=== PATIENT | female | born 1950 | race Caucasian/White ===

== ENCOUNTER → 2019-04-16 10:43 | Outpatient (BNVA) | payer MEDICARE, OTHER, SELFPAY | PROVIDERS: Family Provider Nurse Practitioner; PCP Nurse Practitioner; Visit Provider Nurse Practitioner | DX: Z79.01 Long term (current) use of anticoagulants (principal); I10 Essential (primary) hypertension; M51.34 Other intervertebral disc degeneration, thoracic region; M54.5 Low back pain | CPT/HCPCS: 85610 ==

== ENCOUNTER → 2019-04-22 11:24 | Outpatient (BNVA) | payer MEDICARE, OTHER, SELFPAY | PROVIDERS: Family Provider Nurse Practitioner; PCP Nurse Practitioner; Visit Provider Nurse Practitioner | DX: R10.9 Unspecified abdominal pain (principal); Z79.01 Long term (current) use of anticoagulants; I10 Essential (primary) hypertension; M51.34 Other intervertebral disc degeneration, thoracic region; M54.5 Low back pain | CPT/HCPCS: 72072; 72100; 73502; 73522; 74018 ==

== ENCOUNTER → 2019-05-26 08:59 | Outpatient (BNVA) | payer MEDICARE, OTHER, SELFPAY | PROVIDERS: Family Provider Nurse Practitioner; PCP Nurse Practitioner; Visit Provider Nurse Practitioner | DX: I48.91 Unspecified atrial fibrillation (principal); Z79.01 Long term (current) use of anticoagulants | CPT/HCPCS: 85610 ==

== ENCOUNTER 2019-06-05 07:58 | Outpatient (CLI) | payer MEDICARE, OTHER, SELFPAY ==
--- NOTE | 2019-06-05 08:06 | CT_ITS ---
WS: [id number] CT ABDOMEN AND PELVIS NONCONTRAST HISTORY: generalized abd pain TECHNIQUE: Imaging performed through the abdomen and pelvis. Coronal and sagittal reformats are submi tted. All CT scans at [facility] use at least one of these dose optimization techniques: automated exposure control; mA and/or kV adjustment per patient size (includes targeted exams where d ose is matched to clinical indication); or iterative reconstruction. DLP: 1164.94 mGycm COMPARISON: 05/19/2016 Lower thorax: Lung bases are clear. Small hiatal hernia. Small retrocrural lymph node at the level of the diaphragmatic hiatus is stable. Liver: Normal, no mass or intrahepatic dilatation. Gallbladder: Unremarkable. Pancreas: Normal. Spleen: Normal. Adrenal glands: Normal. Right kidney: Normal size with no stones, masses or atrophy. Left kidney: Normal size with no stones, mass or atrophy. Mild atherosclerosis aorta with no aneurysm. Normal size IVC. No free fluid, intraperitoneal air or significant lymphadenopathy. GI tract: Prior appendectomy. No GI tract obstruction or mucosal thickening. No significant diverticu lar disease. Abdominal wall: Intact. Pelvis: Prior hysterectomy. No free fluid or adenopathy in the pelvis. Urinary bladder is negative. Osseous structures: Mild degenerative disc disease at L5-S1. CT/CT abdomen pelvis wo con [id number] IMPRESSION: 1. Small hiatal hernia. 2. No renal stone or obstruction. 3. Prior appendectomy and hysterectomy. 4. No acute abdominal or pelvic abnormality identified.
[2019-06-05] MEDS: iohexol 300 mg/mL 50 mL Btl PO (08:58)
== END 2019-06-05 07:59 | disposition home or self-care (01) ==
LOC: RADWPI 08:04
PROVIDERS: Family Provider Nurse Practitioner; PCP Nurse Practitioner; Visit Provider Nurse Practitioner
DX: K44.9 Diaphragmatic hernia without obstruction or gangrene (principal); R10.84 Generalized abdominal pain; Z90.710 Acquired absence of both cervix and uterus
CPT/HCPCS: 74176

== ENCOUNTER → 2019-06-18 11:36 | Outpatient (BNVA) | payer MEDICARE, OTHER, SELFPAY | PROVIDERS: Family Provider Nurse Practitioner; PCP Nurse Practitioner; Visit Provider Nurse Practitioner | DX: I48.91 Unspecified atrial fibrillation (principal); Z79.01 Long term (current) use of anticoagulants | CPT/HCPCS: 85610 ==

== ENCOUNTER 2019-06-19 11:21 | Outpatient (CLI) | payer MEDICARE, OTHER, SELFPAY ==
--- NOTE | 2019-06-19 11:28 | XR_ITS ---
WS: [id number] Lumbar spine, 3 views, 06/19/2019 Clinical Data: back pain Comparison: Lumbar spine, 04/22/2019 Findings: No compression fractures or subluxation is seen. Sprained narrowing of L5-S1 is seen.. The transverse processes are normal. Mild osteoarthritic changes of the SI joints is again noted. Osteoporosis is present. The facet joint arthritis L5-S1 remains unchanged. XR/XR lumbar spine 2-3V* [id number] Impression: 1. Negative for compression fracture. 2. No change in osteoarthritis and osteoporosis.
--- NOTE | 2019-06-19 11:28 | XR_ITS ---
WS: [id number] Thoracic spine, 3 views, 06/19/2019 Clinical Data: back pain Comparison: Thoracic spine, 04/22/2019. Findings: No new compression fractures are seen. The disc heights are minimally narrowed at multiple levels. An terior osteoarthritic spurring is present. A slight loss of the superior aspect of the T11 vertebral body is noted. Osteoporosis is present.. XR/XR thoracic spine 3V* [id number] Impression: 1. Osteoarthritis and osteoporosis. 2. Minimal loss of T11 vertebral body height unchanged.
== END 2019-06-19 11:22 | disposition home or self-care (01) ==
PROVIDERS: Family Provider Nurse Practitioner; PCP Nurse Practitioner; Visit Provider Nurse Practitioner
DX: M47.894 Other spondylosis, thoracic region (principal); M81.0 Age-related osteoporosis without current pathological fracture; M54.5 Low back pain
CPT/HCPCS: 72072; 72100

== ENCOUNTER → 2019-07-27 13:15 | Outpatient (BNVA) | payer MEDICARE, OTHER, SELFPAY | PROVIDERS: Family Provider Nurse Practitioner; PCP Nurse Practitioner; Visit Provider Nurse Practitioner | DX: Z79.01 Long term (current) use of anticoagulants (principal); I48.91 Unspecified atrial fibrillation | CPT/HCPCS: 85610 ==

== ENCOUNTER → 2019-08-04 10:16 | Outpatient (BNVA) | payer MEDICARE, OTHER, SELFPAY | PROVIDERS: Family Provider Nurse Practitioner; PCP Nurse Practitioner; Visit Provider Specialist | DX: G40.109 Localization-related (focal) (partial) symptomatic epilepsy and epileptic syndromes with simple partial seizures, not intractable, without status epilepticus (principal) | CPT/HCPCS: 99213 ==

== ENCOUNTER → 2019-08-05 16:08 | Outpatient (BNVA) | payer MEDICARE, OTHER, SELFPAY | PROVIDERS: Family Provider Nurse Practitioner; PCP Nurse Practitioner; Visit Provider Nurse Practitioner | DX: N39.0 Urinary tract infection, site not specified (principal); R30.0 Dysuria | CPT/HCPCS: 80053; 81003; 87077; 87086; 87186 ==

== ENCOUNTER → 2019-08-17 11:44 | Outpatient (BNVA) | payer MEDICARE, OTHER, SELFPAY | PROVIDERS: Family Provider Nurse Practitioner; PCP Nurse Practitioner; Visit Provider Nurse Practitioner | DX: Z79.01 Long term (current) use of anticoagulants (principal); I10 Essential (primary) hypertension; J98.8 Other specified respiratory disorders; R30.0 Dysuria | CPT/HCPCS: 81000; 85610 ==

== ENCOUNTER → 2019-09-09 08:52 | Outpatient (BNVA) | payer MEDICARE, OTHER, SELFPAY | PROVIDERS: Family Provider Nurse Practitioner; PCP Nurse Practitioner; Visit Provider Nurse Practitioner | DX: I48.91 Unspecified atrial fibrillation (principal); Z79.01 Long term (current) use of anticoagulants | CPT/HCPCS: 85610 ==

== ENCOUNTER → 2019-10-08 09:34 | Outpatient (BNVA) | payer MEDICARE, OTHER, SELFPAY | PROVIDERS: Family Provider Nurse Practitioner; PCP Nurse Practitioner; Visit Provider Nurse Practitioner Family | DX: R07.9 Chest pain, unspecified (principal); Z11.59 Encounter for screening for other viral diseases; R53.83 Other fatigue; M25.50 Pain in unspecified joint; W57.XXXA Bitten or stung by nonvenomous insect and other nonvenomous arthropods, initial encounter | CPT/HCPCS: 80053; 82550; 84484; 85025; 86000; 86617; 86666; 86757; 87635 ==

== ENCOUNTER → 2019-10-12 08:33 | Outpatient (BNVA) | payer MEDICARE, OTHER, SELFPAY | PROVIDERS: Family Provider Nurse Practitioner; PCP Nurse Practitioner; Visit Provider Nurse Practitioner | DX: I48.91 Unspecified atrial fibrillation (principal); Z79.01 Long term (current) use of anticoagulants | CPT/HCPCS: 85610 ==

== ENCOUNTER 2019-10-19 11:43 | Outpatient (CLI) | payer MEDICARE, OTHER, SELFPAY ==
--- NOTE | 2019-10-19 13:30 | USCV_ITS ---
Blas Nasrin Age: 69 Gender: F : 1950 Exam Date: 10/19/2019 12:14 Ordering Phys: Taj José Technologist: Deven De León Exam Location: [facility] [place] Indication: PAIN IN LT LEG HISTORY: PAIN IN LT LEG. HISTORY OF PE PROCEDURES: Venous duplex imaging was performed in only the left lower extremity. The following venous structures were evaluated: common femoral vein, profunda vein, proximal portion of the greater saphenous vein, superficial femoral vein, and the popliteal vein. In addition, the posterior tibial and peroneal trunk were evaluated. Serial compression, augmentation maneuvers, and spectral Doppler flow evaluation were performed. FINDINGS: Normal 2-D Doppler and augmentation and compressibility throughout the lower extremity venous structures. Additional imaging through the proximal calf veins also reveals no thrombus. Limited evaluation of the greater saphenous vein is patent with no thrombus. CONCLUSIONS No DVT left lower extremity. Dr. Essence Ram DO (Electronically Signed) Final Date: 19 October 2019 16:22 S
== END 2019-10-19 11:44 | disposition home or self-care (01) ==
LOC: RAD 11:48
PROVIDERS: PCP Nurse Practitioner; Visit Provider Nurse Practitioner
DX: M79.662 Pain in left lower leg (principal); Z86.718 Personal history of other venous thrombosis and embolism
CPT/HCPCS: 80053; 85610; 93971

== ENCOUNTER 2019-10-25 09:29 | Emergency (ER) | payer MEDICARE, OTHER, SELFPAY ==
[2019-10-25 09:34] VITALS: BP 156/74; PULSE 72; RESP 18; TEMP 36.7; O2SAT 97; BMI 31.4
--- NOTE | 2019-10-25 09:44 | ED_ITS ---
HPI - Skin/Abscess/Foreign Bdy General: Chief complaint: Skin/Abscess/Foreign Body Stated complaint: rash/poss allergic reaction to med Time Seen by Provider: 10/25/19 09:39 History of Present Illness: HPI narrative: patient has multiple small circular red areas to both legs. She was recently put on Keflex for possible skin infection and believed that this was an allergic reaction. 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 Factor V History of DVT of lower extremity Left leg angiogram attempted on leg 2009 History of hepatitis A Localization-related (focal) (partial) symptomatic epilepsy and epileptic syndromes with simple partial seizures, not intractable, without status epilepticus Mixed hyperlipidemia Spine pain, lumbar Surgical History History of appendectomy 1974 History of hysterectomy 1976 with BSO History of shoulder surgery 2008 left History of tonsillectomy 2005 History of tubal ligation 1974 Family History Father Cancer Hypertension Heart disease Mother Diabetes Stroke Hypertension Heart disease Daughter Diabetes Grandmother Hypertension Heart disease Social History Smoking and tobacco status: never smoked Second hand smoke exposure: No Smoking risk assessment/counseling performed?: No Alcohol intake: never Desire information about alcohol rehabilitation?: No Counseling given: No Desire information about substance/drug rehabilitation?: No Counseling given: No Adopted: No Caregiver/support person: No Lives independently: Yes Household members: spouse Housing: House Marital status: Number of children: 4 service: No Current occupational status: retired History of recent travel: No Current gender identity: Female Physical Exam Const: COMMON NORMALS: no acute distress, patient oriented x3, no limitations and alert HENMT: COMMON NORMALS: normocephalic, atraumatic, external ears normal and Normal external nose present HEAD & SCALP: normocephalic and atraumatic FACE & SINUS: normal facial exam NOSE: Normal external nose present E XTERNAL EAR: Yes external ears normal MOUTH: Normal oral and palatal mucosa present Neck/C-Spine: COMMON NORMALS: full ROM, no lymphadenopathy, supple, no meningeal signs and no JVD GENERAL: Yes normal visual inspection Resp: COMMON NORMALS: normal respiratory effort, No retractions, No use of accessory muscles and clear to auscultation bilaterally AUSCULTATION: clear to auscultation bilaterally Cardio: COMMON NORMALS: no JVD, regular rate and regular rhythm RATE: r egular rate RHYTHM: regular rhythm GI: COMMON NORMALS: Normal to inspection, nondistended, normoactive bowel sounds present, Soft to palpation, non-tender, No hepatosplenomegaly present and no masses INSPECTION: Yes normal to inspection AUSCULTATION: Yes normoactive bowel sounds PALPATION: Yes Soft to palpation and Yes No hepatosplenomegaly present PERCUSSION: normal to percussion : COMMON NORMALS: Yes no CVA tenderness and Yes normal external appearance BLADDER/KIDNEY EXAM: Yes no CVA tenderness Back/Pelvis: COMMON NORMALS: no CVA tenderness, thoracic and lumbar spine normal to inspection, no thoracic nor lumbar tenderness, thoraco-lumbar ROM normal and straight leg raise negative bilaterally Extremity: COMMON NORMALS: normal to inspection, full ROM, capillary refill normal, no joint enlargement, no clubbing, cyanosis or edema, no calf tenderness and no pedal edema Neuro: COMMON NORMALS: patient oriented x3, moves all extremities, no focal motor deficits and no sensory deficits noted SENSORIUM/ORIENTATION: Yes alert MENINGEAL SIGNS: Yes no meningeal signs Psych: COMMON NORMALS: mental status grossly normal, Normal thought process present, cooperative, normal affect and speech normal SPEECH: Yes normal speech THOUGHT PROCESS: Normal thought process present Skin: COMMON NORMALS: no wounds, turgor normal, no jaundice and no mottling GENERAL SKIN EXAM: turgor normal RASHES: rashes noted Course Vital Signs: Vital signs: Vital Signs Temperature 98.1 F 10/25/19 09:34 Pulse Rate 72 10/25/19 09:34 Respiratory Rate 18 10/25/19 09:34 Blood Pressure 156/74 10/25/19 09:34 Pulse Oximetry 97 10/25/19 09:34 Discharge Plan Discharge Patient Disposition: Home Clinical Impression: Rash Condition: Stable Prescriptions: New prednisone 5 mg tablets,dose pack See Rx Instructions .ROUTE .COMPLEX Qty: 21 RF: 0 No Action nitroglycerin [Nitrostat] 0.4 mg tablet, sublingual 0.4 mg SUBLINGUAL ONCE PRNRF: 0 nitrofurantoin monohyd/m-cryst [Macrobid] 100 mg capsule 100 mg PO Q12H 7 Days Qty: 14 RF: 0 furosemide 40 mg tablet 40 mg PO QAM PRN (Reason: edema) Qty: 90 RF: 1 levalbuterol tartrate [Xopenex HFA] 45 mcg/actuation HFA aerosol inhaler 1 puff INHALATION Q6H Qty: 15 RF: 2 metoprolol tartrate 75 mg tablet 75 mg PO BID Qty: 180 RF: 3 levetiracetam 1,000 mg tablet 2,000 mg PO BID Qty: 120 RF: 5 alprazolam 0.25 mg tablet 0.25 mg PO DAILY PRN (Reason: epilepsy) Qty: 30 RF: 5 warfarin 6 mg tablet 6 mg PO QDAY Qty: 30 RF: 0 warfarin 1 mg tablet 0.5 mg PO .COMPLEX Qty: 15 RF: 0 cephalexin [Keflex] 500 mg capsule 500 mg PO TID Qty: 30 RF: 0 ondansetron HCl [Zofran] 4 mg tablet 4 mg PO Q8H PRN (Reason: nausea and vomiting) Qty: 7 RF: 0 Discharge Orders: Discharge Order (Routine); Ordered 10/25/19 Ordered By: Luis M Maloney Referrals: Taj José, PRODUCTION MACHINIST-C [Primary Care Provider] - Coding Level of Care Code ED [employer]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
[2019-10-25 10:04] VITALS: BP 120/57; PULSE 65; RESP 18; O2SAT 94
== END 2019-10-25 10:03 | disposition home or self-care (01) ==
LOC: ER 09:56
PROVIDERS: Emergency Provider Family Medicine; PCP Nurse Practitioner
DX: R21 Rash and other nonspecific skin eruption (principal); Z79.01 Long term (current) use of anticoagulants; I48.91 Unspecified atrial fibrillation; I10 Essential (primary) hypertension; E78.2 Mixed hyperlipidemia
CPT/HCPCS: 12345; 99281

== ENCOUNTER → 2019-10-30 08:56 | Outpatient (BNVA) | payer MEDICARE, OTHER, SELFPAY | PROVIDERS: PCP Nurse Practitioner; Visit Provider Nurse Practitioner | DX: M54.5 Low back pain (principal); R21 Rash and other nonspecific skin eruption; Z79.01 Long term (current) use of anticoagulants; R26.9 Unspecified abnormalities of gait and mobility | CPT/HCPCS: 85025; 85610 ==

== ENCOUNTER 2019-11-03 13:00 | Outpatient (CLI) | payer MEDICARE, OTHER, SELFPAY ==
--- NOTE | 2019-11-03 18:15 | MR_ITS ---
WS: [id number] MRI LUMBAR SPINE NONCONTRAST HISTORY: M54.5 Low back pain COMPARISON: 06/20/2011 TECHNIQUE: Sagittal and axial multisequence imaging is submitted. Normal lumbar alignment with no compression fractures or marrow edema. Minimal disc space narrowing and desiccation at L4-5 and L5-S1. Conus terminates normally at L1-2 disc level. 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 T12-L1: Mild disc bulging with no contact on the cord. L1-L2: Mild annular disc bulging without stenosis. Small nerve root sleeve diverticulum on the RIGHT. L2-L3: Mild annular disc bulging. There is a more focal shallow RIGHT foraminal disc protrusion not c ausing significant stenosis or encroachment. L3-L4: Mild facet joint arthritis. No significant stenosis. L4-L5: Mild annular disc bulging with facet and ligamentum flavum arthropathy. There is very minimal narrowing of the subarticular recesses but no stenosis. L5-S1: Broad-based central disc protrusion without contact on the nerve roots. Mild facet joint arthr itis. Less encroachment upon the S1 nerve roots as compared to the prior study. Visualized retroperitoneum is normal. MR/MR lumbar spine wo con* [id number] IMPRESSION: 1. No high-grade stenosis. 2. Central disc protrusion at L5-S1. Disc has decreased in size since 2011 wit h less encroachment upon the S1 nerve roots. 3. New shallow RIGHT foraminal disc protrusion at L2-3 without nerve root encr oachment. 4. Mild narrowing of the subarticular recesses at L4-5.
== END 2019-11-03 13:01 | disposition home or self-care (01) ==
LOC: RADSHAW 13:02
PROVIDERS: PCP Nurse Practitioner; Visit Provider Nurse Practitioner
DX: M51.27 Other intervertebral disc displacement, lumbosacral region (principal); M51.26 Other intervertebral disc displacement, lumbar region
CPT/HCPCS: 72148

== ENCOUNTER → 2019-11-19 09:24 | Outpatient (BNVA) | payer MEDICARE, OTHER, SELFPAY | PROVIDERS: PCP Nurse Practitioner; Referring Provider Nurse Practitioner; Visit Provider Anesthesiology Pain Medicine | DX: M47.816 Spondylosis without myelopathy or radiculopathy, lumbar region (principal); M51.16 Intervertebral disc disorders with radiculopathy, lumbar region; M62.830 Muscle spasm of back | CPT/HCPCS: 99205 ==

== ENCOUNTER → 2019-11-26 08:43 | Outpatient (BNVA) | payer MEDICARE, OTHER, SELFPAY | PROVIDERS: PCP Nurse Practitioner; Visit Provider Nurse Practitioner | DX: Z79.01 Long term (current) use of anticoagulants (principal); I48.11 Longstanding persistent atrial fibrillation | CPT/HCPCS: 85610 ==

== ENCOUNTER → 2019-12-02 13:47 | Outpatient (BNVA) | payer MEDICARE, OTHER, SELFPAY | PROVIDERS: PCP Nurse Practitioner; Visit Provider Anesthesiology Pain Medicine | DX: M47.816 Spondylosis without myelopathy or radiculopathy, lumbar region (principal); M54.9 Dorsalgia, unspecified | CPT/HCPCS: 64493; 64494; 64495; J3490 ==

== ENCOUNTER → 2019-12-15 09:45 | Outpatient (BNVA) | payer MEDICARE, OTHER, SELFPAY | PROVIDERS: PCP Nurse Practitioner; Visit Provider Anesthesiology Pain Medicine | DX: M47.816 Spondylosis without myelopathy or radiculopathy, lumbar region (principal); M51.16 Intervertebral disc disorders with radiculopathy, lumbar region; M62.830 Muscle spasm of back | CPT/HCPCS: 99213 ==

== ENCOUNTER → 2019-12-31 08:35 | Outpatient (BNVA) | payer MEDICARE, OTHER, SELFPAY | PROVIDERS: PCP Nurse Practitioner; Visit Provider Nurse Practitioner | DX: I48.11 Longstanding persistent atrial fibrillation (principal); Z79.01 Long term (current) use of anticoagulants | CPT/HCPCS: 85610 ==

== ENCOUNTER 2020-01-20 06:00 | Outpatient (RCR) | payer MEDICARE, OTHER, SELFPAY | END 2020-01-30 23:59 | disposition home or self-care (01) | LOC: APT 06:00 | PROVIDERS: PCP Nurse Practitioner; Referring Provider Anesthesiology Pain Medicine; Visit Provider Anesthesiology Pain Medicine | DX: G89.29 Other chronic pain (principal); M47.816 Spondylosis without myelopathy or radiculopathy, lumbar region | CPT/HCPCS: 97110; 97163 ==

== ENCOUNTER 2020-01-31 06:00 | Outpatient (RCR) | payer MEDICARE, OTHER, SELFPAY | END 2020-02-29 23:59 | disposition home or self-care (01) | LOC: APT 06:00 | PROVIDERS: PCP Nurse Practitioner; Referring Provider Anesthesiology Pain Medicine; Visit Provider Anesthesiology Pain Medicine | DX: M54.5 Low back pain (principal); G89.29 Other chronic pain; M47.816 Spondylosis without myelopathy or radiculopathy, lumbar region | CPT/HCPCS: 97110; 97530 ==

== ENCOUNTER → 2020-02-01 13:04 | Outpatient (BNVA) | payer MEDICARE, OTHER, SELFPAY | PROVIDERS: PCP Nurse Practitioner; Visit Provider Nurse Practitioner | DX: Z51.81 Encounter for therapeutic drug level monitoring (principal); Z79.01 Long term (current) use of anticoagulants | CPT/HCPCS: 85610 ==

== ENCOUNTER → 2020-03-03 09:05 | Outpatient (BNVA) | payer MEDICARE, OTHER, SELFPAY | PROVIDERS: PCP Nurse Practitioner; Visit Provider Nurse Practitioner | DX: Z79.01 Long term (current) use of anticoagulants (principal); I48.11 Longstanding persistent atrial fibrillation | CPT/HCPCS: 85610 ==

== ENCOUNTER → 2020-04-04 09:13 | Outpatient (BNVA) | payer MEDICARE, OTHER, SELFPAY | PROVIDERS: PCP Nurse Practitioner; Visit Provider Nurse Practitioner | DX: E78.5 Hyperlipidemia, unspecified (principal); I10 Essential (primary) hypertension; I48.11 Longstanding persistent atrial fibrillation; Z79.01 Long term (current) use of anticoagulants | CPT/HCPCS: 80053; 85610 ==

== ENCOUNTER → 2020-05-04 08:52 | Outpatient (BNVA) | payer MEDICARE, OTHER, SELFPAY | PROVIDERS: PCP Nurse Practitioner; Visit Provider Nurse Practitioner | DX: I48.11 Longstanding persistent atrial fibrillation (principal); Z79.01 Long term (current) use of anticoagulants | CPT/HCPCS: 85610 ==

== ENCOUNTER → 2020-06-01 12:52 | Outpatient (BNVA) | payer MEDICARE, OTHER, SELFPAY | PROVIDERS: PCP Nurse Practitioner; Visit Provider Specialist | DX: G40.109 Localization-related (focal) (partial) symptomatic epilepsy and epileptic syndromes with simple partial seizures, not intractable, without status epilepticus (principal) | CPT/HCPCS: 99213; 99214 ==

== ENCOUNTER → 2020-06-07 08:26 | Outpatient (BNVA) | payer MEDICARE, OTHER, SELFPAY | PROVIDERS: PCP Nurse Practitioner; Visit Provider Nurse Practitioner | DX: I48.11 Longstanding persistent atrial fibrillation (principal); Z79.01 Long term (current) use of anticoagulants | CPT/HCPCS: 85610 ==

== ENCOUNTER → 2020-07-08 08:16 | Outpatient (BNVA) | payer MEDICARE, OTHER, SELFPAY | PROVIDERS: PCP Nurse Practitioner; Visit Provider Nurse Practitioner | DX: I48.11 Longstanding persistent atrial fibrillation (principal); Z79.01 Long term (current) use of anticoagulants | CPT/HCPCS: 85610 ==

== ENCOUNTER → 2020-08-10 09:31 | Outpatient (BNVA) | payer MEDICARE, OTHER, SELFPAY | PROVIDERS: PCP Nurse Practitioner; Visit Provider Nurse Practitioner | DX: Z79.01 Long term (current) use of anticoagulants (principal) | CPT/HCPCS: 85610 ==

== ENCOUNTER → 2020-09-06 14:15 | Outpatient (BNVA) | payer MEDICARE, OTHER, SELFPAY | PROVIDERS: PCP Nurse Practitioner; Visit Provider Nurse Practitioner | DX: I48.11 Longstanding persistent atrial fibrillation (principal); Z79.01 Long term (current) use of anticoagulants | CPT/HCPCS: 85610 ==

== ENCOUNTER → 2020-10-17 08:58 | Outpatient (BNVA) | payer MEDICARE, OTHER, SELFPAY | PROVIDERS: PCP Nurse Practitioner; Visit Provider Nurse Practitioner | DX: I48.11 Longstanding persistent atrial fibrillation (principal) | CPT/HCPCS: 85610 ==

== ENCOUNTER → 2020-11-15 08:47 | Outpatient (BNVA) | payer MEDICARE, OTHER, SELFPAY | PROVIDERS: PCP Nurse Practitioner; Visit Provider Nurse Practitioner | DX: Z79.01 Long term (current) use of anticoagulants (principal) | CPT/HCPCS: 85610 ==

== ENCOUNTER → 2020-12-14 08:59 | Outpatient (BNVA) | payer MEDICARE, OTHER, SELFPAY | PROVIDERS: PCP Nurse Practitioner; Visit Provider Nurse Practitioner | DX: I48.11 Longstanding persistent atrial fibrillation (principal); Z79.01 Long term (current) use of anticoagulants | CPT/HCPCS: 85610 ==

== ENCOUNTER → 2020-12-26 11:02 | Outpatient (BNVA) | payer MEDICARE, OTHER, SELFPAY | PROVIDERS: PCP Nurse Practitioner; Visit Provider Nurse Practitioner Family | DX: N39.0 Urinary tract infection, site not specified (principal); M62.830 Muscle spasm of back | CPT/HCPCS: 81000 ==

== ENCOUNTER → 2021-01-03 16:46 | Outpatient (BNVA) | payer MEDICARE, OTHER, SELFPAY | PROVIDERS: PCP Nurse Practitioner; Visit Provider Nurse Practitioner | DX: R10.9 Unspecified abdominal pain (principal); E78.5 Hyperlipidemia, unspecified; I10 Essential (primary) hypertension; I48.11 Longstanding persistent atrial fibrillation; Z79.01 Long term (current) use of anticoagulants | CPT/HCPCS: 80053; 80061; 84443; 85025; 85610 ==

== ENCOUNTER 2021-01-24 07:33 | Outpatient (CLI) | payer MEDICARE, OTHER, SELFPAY ==
--- NOTE | 2021-01-24 08:00 | US_ITS ---
WS: [id number] RENAL ULTRASOUND HISTORY: R10.9 - Unspecified abdominal pain COMPARISON: None available. TECHNIQUE: 2-D and color Doppler imaging of the kidney submitted. Right kidney: 11.5 cm x 4.6 cm x 4.8 cm. Normal echogenicity with no hydronephrosis or mass. Left kidney: 11.6 cm x 5.0 cm x 4.9 cm. Normal echogenicity with no hydronephrosis or mass. Aorta: Normal. Urinary Bladder: Normal distention. Cholelithiasis. Gallbladder is slightly contracted which may be due to nonfasting state. US/US renal BI* [id number] IMPRESSION: Normal renal ultrasound. Cholelithiasis.
== END 2021-01-24 07:34 | disposition home or self-care (01) ==
PROVIDERS: PCP Nurse Practitioner; Visit Provider Nurse Practitioner
DX: R10.9 Unspecified abdominal pain (principal); K80.20 Calculus of gallbladder without cholecystitis without obstruction
CPT/HCPCS: 76770

== ENCOUNTER → 2021-01-26 08:44 | Outpatient (BNVA) | payer MEDICARE, OTHER, SELFPAY | PROVIDERS: PCP Nurse Practitioner; Visit Provider Anesthesiology Pain Medicine | DX: M47.816 Spondylosis without myelopathy or radiculopathy, lumbar region (principal); M51.16 Intervertebral disc disorders with radiculopathy, lumbar region; M62.830 Muscle spasm of back; M79.605 Pain in left leg | CPT/HCPCS: 99214 ==

== ENCOUNTER → 2021-02-09 12:30 | Outpatient (BNVA) | payer MEDICARE, OTHER, SELFPAY | PROVIDERS: PCP Nurse Practitioner; Visit Provider Anesthesiology Pain Medicine | DX: M47.816 Spondylosis without myelopathy or radiculopathy, lumbar region (principal); M54.16 Radiculopathy, lumbar region | CPT/HCPCS: 64635; 64636 ==

== ENCOUNTER → 2021-02-14 08:56 | Outpatient (BNVA) | payer MEDICARE, OTHER, SELFPAY | PROVIDERS: PCP Nurse Practitioner; Visit Provider Nurse Practitioner | DX: Z79.01 Long term (current) use of anticoagulants (principal) | CPT/HCPCS: 85610 ==

== ENCOUNTER → 2021-03-02 13:14 | Outpatient (BNVA) | payer MEDICARE, OTHER, SELFPAY | PROVIDERS: PCP Nurse Practitioner; Visit Provider Anesthesiology Pain Medicine | DX: M47.816 Spondylosis without myelopathy or radiculopathy, lumbar region (principal) | CPT/HCPCS: 64635; 64636; J1030 ==

== ENCOUNTER → 2021-03-15 08:59 | Outpatient (BNVA) | payer MEDICARE, OTHER, SELFPAY | PROVIDERS: PCP Nurse Practitioner; Visit Provider Nurse Practitioner | DX: Z79.01 Long term (current) use of anticoagulants (principal) | CPT/HCPCS: 85610 ==

== ENCOUNTER → 2021-03-16 09:47 | Outpatient (BNVA) | payer MEDICARE, OTHER, SELFPAY | PROVIDERS: PCP Nurse Practitioner; Visit Provider Anesthesiology Pain Medicine | DX: M54.50 Low back pain, unspecified (principal) | CPT/HCPCS: 99212 ==

== ENCOUNTER → 2021-04-12 08:58 | Outpatient (BNVA) | payer MEDICARE, OTHER, SELFPAY | PROVIDERS: PCP Nurse Practitioner; Visit Provider Nurse Practitioner | DX: Z79.01 Long term (current) use of anticoagulants (principal) | CPT/HCPCS: 85610 ==

== ENCOUNTER → 2021-05-11 08:59 | Outpatient (BNVA) | payer MEDICARE, OTHER, SELFPAY | PROVIDERS: PCP Nurse Practitioner; Visit Provider Nurse Practitioner | DX: Z79.01 Long term (current) use of anticoagulants (principal) | CPT/HCPCS: 85610 ==

== ENCOUNTER → 2021-06-07 12:29 | Outpatient (BNVA) | payer MEDICARE, OTHER, SELFPAY | PROVIDERS: PCP Nurse Practitioner; Visit Provider Specialist | DX: G40.109 Localization-related (focal) (partial) symptomatic epilepsy and epileptic syndromes with simple partial seizures, not intractable, without status epilepticus (principal) | CPT/HCPCS: 99213 ==

== ENCOUNTER → 2021-06-08 09:03 | Outpatient (BNVA) | payer MEDICARE, OTHER, SELFPAY | PROVIDERS: PCP Nurse Practitioner; Visit Provider Nurse Practitioner | DX: I48.91 Unspecified atrial fibrillation (principal) | CPT/HCPCS: 85610 ==

== ENCOUNTER 2021-07-06 10:37 | Outpatient (CLI) | payer MEDICARE, OTHER, SELFPAY ==
--- NOTE | 2021-07-06 11:15 | US_ITS ---
WS: [id number] THYROID ULTRASOUND HISTORY: E04.9 - Nontoxic goiter, unspecified COMPARISON: 09/30/2018 Right lobe: 1.7 cm x 2.3 cm x 5.3 cm (w x ap x l). Volume: 11.0 cm3. Mildly prominent thyroid. No increased vascularity. Very superficial benign-appearing nodule in the m id gland measures 7 x 3 x 7 mm. No change since 2019. Left lobe: 1.5 cm x 1.7 cm x 4.5 cm (w x ap x l). Volume: 5.9 cm3. Normal size and echotexture. No significant or dominant nodules are present. Isthmus: 0.3 cm. Small normal-appearing bilateral cervical chain lymph nodes. US/US thyroid [id number] IMPRESSION: Stable ultrasound thyroid since 09/30/2018. No new or increasing nodules size or suspicious calcification.
== END 2021-07-06 10:38 | disposition home or self-care (01) ==
PROVIDERS: PCP Nurse Practitioner; Visit Provider Nurse Practitioner
DX: E04.9 Nontoxic goiter, unspecified (principal)
CPT/HCPCS: 76536; 99214

== ENCOUNTER → 2021-07-11 14:09 | Outpatient (BNVA) | payer MEDICARE, OTHER, SELFPAY | PROVIDERS: PCP Nurse Practitioner; Visit Provider Nurse Practitioner | DX: I48.11 Longstanding persistent atrial fibrillation (principal); L03.90 Cellulitis, unspecified; J45.909 Unspecified asthma, uncomplicated; E04.9 Nontoxic goiter, unspecified; E78.5 Hyperlipidemia, unspecified | CPT/HCPCS: 73590; 85610 ==

== ENCOUNTER → 2021-07-19 10:09 | Outpatient (BNVA) | payer MEDICARE, OTHER, SELFPAY | PROVIDERS: PCP Nurse Practitioner; Visit Provider Nurse Practitioner | DX: R07.81 Pleurodynia (principal); M62.830 Muscle spasm of back; E78.5 Hyperlipidemia, unspecified; E04.9 Nontoxic goiter, unspecified | CPT/HCPCS: 71101; 80053; 80061; 84443 ==

== ENCOUNTER → 2021-08-15 08:52 | Outpatient (BNVA) | payer MEDICARE, OTHER, SELFPAY | PROVIDERS: PCP Nurse Practitioner; Visit Provider Nurse Practitioner | DX: Z79.01 Long term (current) use of anticoagulants (principal) | CPT/HCPCS: 85610 ==

== ENCOUNTER → 2021-09-13 08:55 | Outpatient (BNVA) | payer MEDICARE, OTHER, SELFPAY | PROVIDERS: PCP Nurse Practitioner; Visit Provider Nurse Practitioner | DX: I48.11 Longstanding persistent atrial fibrillation (principal); Z79.01 Long term (current) use of anticoagulants | CPT/HCPCS: 85610 ==

== ENCOUNTER → 2021-09-21 11:12 | Outpatient (BNVA) | payer MEDICARE, OTHER, SELFPAY | PROVIDERS: PCP Nurse Practitioner; Visit Provider Nurse Practitioner Family | DX: R30.0 Dysuria (principal); N39.0 Urinary tract infection, site not specified | CPT/HCPCS: 81000; 87077; 87086; 87184 ==

== ENCOUNTER → 2021-10-18 09:12 | Outpatient (BNVA) | payer MEDICARE, OTHER, SELFPAY | PROVIDERS: PCP Nurse Practitioner; Visit Provider Nurse Practitioner | DX: I48.11 Longstanding persistent atrial fibrillation (principal); Z79.01 Long term (current) use of anticoagulants | CPT/HCPCS: 85610 ==

== ENCOUNTER → 2021-11-17 08:07 | Outpatient (BNVA) | payer MEDICARE, OTHER, SELFPAY | PROVIDERS: PCP Nurse Practitioner; Visit Provider Nurse Practitioner | DX: Z79.01 Long term (current) use of anticoagulants (principal) | CPT/HCPCS: 85610 ==

== ENCOUNTER → 2021-12-13 08:46 | Outpatient (BNVA) | payer MEDICARE, SELFPAY | PROVIDERS: PCP Nurse Practitioner; Visit Provider Nurse Practitioner | DX: I48.91 Unspecified atrial fibrillation (principal) | CPT/HCPCS: 85610 ==

== ENCOUNTER → 2021-12-25 10:10 | Outpatient (BNVA) | payer MEDICARE, OTHER, SELFPAY | PROVIDERS: PCP Nurse Practitioner; Visit Provider Internal Medicine Cardiovascular Disease | DX: I48.11 Longstanding persistent atrial fibrillation (principal); L97.929 Non-pressure chronic ulcer of unspecified part of left lower leg with unspecified severity; I10 Essential (primary) hypertension; Z86.718 Personal history of other venous thrombosis and embolism; E78.5 Hyperlipidemia, unspecified; Z79.01 Long term (current) use of anticoagulants; F17.200 Nicotine dependence, unspecified, uncomplicated | CPT/HCPCS: 99214 ==

== ENCOUNTER → 2022-01-10 08:30 | Outpatient (BNVA) | payer MEDICARE, OTHER, SELFPAY | PROVIDERS: PCP Nurse Practitioner; Visit Provider Internal Medicine Cardiovascular Disease | DX: E78.5 Hyperlipidemia, unspecified (principal) | CPT/HCPCS: 80061 ==

== ENCOUNTER → 2022-01-17 08:35 | Outpatient (BNVA) | payer MEDICARE, OTHER, SELFPAY | PROVIDERS: PCP Nurse Practitioner; Visit Provider Nurse Practitioner | DX: I48.11 Longstanding persistent atrial fibrillation (principal); Z79.01 Long term (current) use of anticoagulants | CPT/HCPCS: 85610 ==

== ENCOUNTER → 2022-02-15 08:37 | Outpatient (BNVA) | payer MEDICARE, OTHER, SELFPAY | PROVIDERS: PCP Nurse Practitioner; Visit Provider Nurse Practitioner | DX: I48.11 Longstanding persistent atrial fibrillation (principal) | CPT/HCPCS: 85610 ==

== ENCOUNTER → 2022-03-15 09:40 | Outpatient (BNVA) | payer MEDICARE, OTHER, SELFPAY | PROVIDERS: PCP Nurse Practitioner; Visit Provider Nurse Practitioner | DX: I48.11 Longstanding persistent atrial fibrillation (principal) | CPT/HCPCS: 85610 ==

== ENCOUNTER → 2022-04-10 08:28 | Outpatient (BNVA) | payer MEDICARE, OTHER, SELFPAY | PROVIDERS: PCP Nurse Practitioner; Visit Provider Nurse Practitioner | DX: I48.11 Longstanding persistent atrial fibrillation (principal) | CPT/HCPCS: 85610 ==

== ENCOUNTER → 2022-05-18 10:05 | Outpatient (BNVA) | payer MEDICARE, OTHER, SELFPAY | PROVIDERS: PCP Nurse Practitioner; Visit Provider Nurse Practitioner | DX: I48.11 Longstanding persistent atrial fibrillation (principal) | CPT/HCPCS: 85610 ==

== ENCOUNTER → 2022-06-05 12:01 | Outpatient (BNVA) | payer MEDICARE, OTHER, SELFPAY | PROVIDERS: PCP Nurse Practitioner; Visit Provider Specialist | DX: G40.109 Localization-related (focal) (partial) symptomatic epilepsy and epileptic syndromes with simple partial seizures, not intractable, without status epilepticus (principal); R07.0 Pain in throat; F41.9 Anxiety disorder, unspecified; F32.A Depression, unspecified | CPT/HCPCS: 99214 ==

== ENCOUNTER → 2022-06-14 09:35 | Outpatient (BNVA) | payer MEDICARE, OTHER, SELFPAY | PROVIDERS: PCP Nurse Practitioner; Visit Provider Nurse Practitioner | DX: I48.11 Longstanding persistent atrial fibrillation (principal); E04.9 Nontoxic goiter, unspecified; E78.5 Hyperlipidemia, unspecified; Z79.01 Long term (current) use of anticoagulants; J45.909 Unspecified asthma, uncomplicated; I10 Essential (primary) hypertension; J98.01 Acute bronchospasm | CPT/HCPCS: 80053; 80061; 84443; 85025; 85610 ==

== ENCOUNTER → 2022-06-15 12:13 | Outpatient (BNVA) | payer MEDICARE, OTHER, SELFPAY | PROVIDERS: PCP Nurse Practitioner; Visit Provider Family Medicine | DX: E04.9 Nontoxic goiter, unspecified (principal); E78.5 Hyperlipidemia, unspecified; I10 Essential (primary) hypertension | CPT/HCPCS: 81000 ==

== ENCOUNTER 2022-06-30 06:00 | Outpatient (RCR) | payer MEDICARE, OTHER, SELFPAY | END 2022-07-29 23:59 | disposition home or self-care (01) | LOC: APT 06:00 | PROVIDERS: PCP Nurse Practitioner; Referring Provider Anesthesiology Pain Medicine; Visit Provider Anesthesiology Pain Medicine | DX: M54.50 Low back pain, unspecified (principal); G89.29 Other chronic pain; M47.816 Spondylosis without myelopathy or radiculopathy, lumbar region | CPT/HCPCS: 97113 ==

== ENCOUNTER → 2022-07-02 09:53 | Outpatient (BNVA) | payer MEDICARE, OTHER, SELFPAY | PROVIDERS: PCP Nurse Practitioner; Visit Provider Internal Medicine Cardiovascular Disease | DX: I48.11 Longstanding persistent atrial fibrillation (principal); E78.5 Hyperlipidemia, unspecified; I10 Essential (primary) hypertension; Z79.01 Long term (current) use of anticoagulants; Z86.718 Personal history of other venous thrombosis and embolism; F17.200 Nicotine dependence, unspecified, uncomplicated | CPT/HCPCS: 99214 ==

== ENCOUNTER 2022-07-12 14:20 | Outpatient (CLI) | payer MEDICARE, OTHER, SELFPAY ==
--- NOTE | 2022-07-12 14:30 | US_ITS ---
WS: [id number] THYROID ULTRASOUND HISTORY: E04.9 - Nontoxic goiter, unspecified COMPARISON: 07/06/2021 Right lobe: 1.8 cm x 2.3 cm x 4.2 cm (w x ap x l). Volume: 8.9 cm3. Normal size gland. Superficial hypoechoic nodule with benign features on the mid gland measures 6 mm with no increase in size. Stable over multiple prior years. Stable at least since 2019. No new mass o r nodule. Left lobe: 1.7 cm x 2.0 cm x 4.0 cm (w x ap x l). Volume: 7.1 cm3. Normal size and echotexture. No significant or dominant nodules are present. Isthmus: 0.1 cm. US/US thyroid [id number] IMPRESSION: 1. No new thyroid mass or nodule. 2. Long-term stability benign-appearing nodule superficial mid RIGHT thyroid.
== END 2022-07-12 14:21 | disposition home or self-care (01) ==
LOC: RAD 14:24
PROVIDERS: PCP Nurse Practitioner; Visit Provider Nurse Practitioner
DX: E04.9 Nontoxic goiter, unspecified (principal); E04.1 Nontoxic single thyroid nodule
CPT/HCPCS: 76536

== ENCOUNTER → 2022-07-23 08:40 | Outpatient (BNVA) | payer MEDICARE, OTHER, SELFPAY | PROVIDERS: PCP Nurse Practitioner; Visit Provider Nurse Practitioner | DX: I48.11 Longstanding persistent atrial fibrillation (principal) | CPT/HCPCS: 85610 ==

== ENCOUNTER → 2022-08-17 08:06 | Outpatient (BNVA) | payer MEDICARE, OTHER, SELFPAY | PROVIDERS: PCP Nurse Practitioner; Visit Provider Nurse Practitioner | DX: I48.11 Longstanding persistent atrial fibrillation (principal) | CPT/HCPCS: 85610 ==

== ENCOUNTER → 2022-09-18 08:12 | Outpatient (BNVA) | payer MEDICARE, OTHER, SELFPAY | PROVIDERS: PCP Nurse Practitioner; Visit Provider Nurse Practitioner | DX: I48.11 Longstanding persistent atrial fibrillation (principal) | CPT/HCPCS: 85610 ==

== ENCOUNTER → 2022-10-04 13:40 | Outpatient (BNVA) | payer MEDICARE, OTHER, SELFPAY | PROVIDERS: PCP Nurse Practitioner; Visit Provider Nurse Practitioner Family | DX: L57.0 Actinic keratosis (principal); L57.8 Other skin changes due to chronic exposure to nonionizing radiation; L71.8 Other rosacea; L23.9 Allergic contact dermatitis, unspecified cause; L82.1 Other seborrheic keratosis; L81.4 Other melanin hyperpigmentation; D22.5 Melanocytic nevi of trunk; L85.3 Xerosis cutis; L82.0 Inflamed seborrheic keratosis; Z71.89 Other specified counseling | CPT/HCPCS: 17000; 17003; 17110; 99214 ==

== ENCOUNTER → 2022-10-18 09:16 | Outpatient (BNVA) | payer MEDICARE, OTHER, SELFPAY | PROVIDERS: PCP Nurse Practitioner; Visit Provider Nurse Practitioner | DX: I48.91 Unspecified atrial fibrillation (principal) | CPT/HCPCS: 85610 ==

== ENCOUNTER → 2022-11-19 08:48 | Outpatient (BNVA) | payer MEDICARE, OTHER, SELFPAY | PROVIDERS: PCP Nurse Practitioner; Visit Provider Nurse Practitioner | DX: I48.11 Longstanding persistent atrial fibrillation (principal) | CPT/HCPCS: 85610 ==

== ENCOUNTER → 2022-12-13 10:03 | Outpatient (BNVA) | payer MEDICARE, OTHER, SELFPAY | PROVIDERS: PCP Nurse Practitioner; Visit Provider Nurse Practitioner | DX: J45.909 Unspecified asthma, uncomplicated (principal); I10 Essential (primary) hypertension; E78.5 Hyperlipidemia, unspecified; E04.9 Nontoxic goiter, unspecified; I48.91 Unspecified atrial fibrillation; E55.9 Vitamin D deficiency, unspecified; I48.11 Longstanding persistent atrial fibrillation; M21.611 Bunion of right foot; Z79.01 Long term (current) use of anticoagulants | CPT/HCPCS: 80053; 80061; 82306; 84443; 85610 ==

== ENCOUNTER 2023-01-02 13:21 | Outpatient (CLI) | payer MEDICARE, OTHER, SELFPAY ==
--- NOTE | 2023-01-02 13:31 | MM_ITS ---
WS: [id number] BILATERAL 3D TOMOSYNTHESIS DIGITAL SCREENING MAMMOGRAPHY WITH CAD CLINICAL INFORMATION: Z12.31 - Encounter for screening mammogram for malignant ... HISTORY: Screening mammogram. No current complaints. COMPARISON: 2019 TECHNIQUE: Bilateral CC and MLO views. FINDINGS: Scattered fibroglandular densities bilaterally. No suspicious focal mass, asymmetry, calcifications, or architectural distortion. No evidence of malignancy. A few tiny incidental punctate calcifications . IMPRESSION: MM/[place] [id number] BI-RADS: 2-Benign FOLLOW UP: 1 Year Follow-up Recommend return to annual screening mammography.
== END 2023-01-02 13:22 | disposition home or self-care (01) ==
LOC: RAD 13:24
PROVIDERS: PCP Nurse Practitioner; Visit Provider Nurse Practitioner
DX: Z12.31 Encounter for screening mammogram for malignant neoplasm of breast (principal)
CPT/HCPCS: 77063; 77067

== ENCOUNTER → 2023-01-15 09:23 | Outpatient (BNVA) | payer MEDICARE, OTHER, SELFPAY | PROVIDERS: PCP Nurse Practitioner; Visit Provider Nurse Practitioner | DX: I48.11 Longstanding persistent atrial fibrillation (principal); Z23 Encounter for immunization | CPT/HCPCS: 85610 ==

== ENCOUNTER → 2023-01-28 10:58 | Outpatient (BNVA) | payer MEDICARE, OTHER, SELFPAY | PROVIDERS: PCP Nurse Practitioner; Visit Provider Nurse Practitioner Family | DX: I10 Essential (primary) hypertension (principal); I48.11 Longstanding persistent atrial fibrillation; F17.200 Nicotine dependence, unspecified, uncomplicated; Z79.01 Long term (current) use of anticoagulants | CPT/HCPCS: 99214 ==

== ENCOUNTER 2023-02-01 09:25 | Outpatient (CLI) | payer MEDICARE, OTHER, SELFPAY ==
[2023-02-01 10:08] VITALS: BMI 32.3
--- NOTE | 2023-02-01 10:15 | NMCV_ITS ---
NM osvaldo perf SPECT r/s* [id number] Nasrin Odonnell Age: 72 Gender: F : 1950 Exam Date: 02/01/2023 10:48 Ordering Phys: Jayme Sales M.D ([email or web address]) Technologist: LARA Bonilla Exam Location: [facility] Indications: HYPERTENSION, CHEST PAIN STRESS TEST Please see separate stress test report in [facility] for full findings IMAGE PROTOCOL Rest/Stress 1 Exercise Day Radiopharmaceutical Dose (mCi) Administration Site Administered by Rest: Tc-99m 10.8 IV LARA Humphrey Sestamimacey Stress:Tc-99m 32.9 IV LARA Bonilla Sesmonicamimacey Rest: 01-Feb-2023 60 Discovery 630 Stress: 01-Feb-2023 15 Discovery 630 Radiopharmaceutical was injected at 93 % maximum heart rate. Images obtained in supine and prone position. SPECT RESULTS Technical Quality: Excellent Raw Data Analysis: Normal Image Corrections: No attenuation or motion correction applied Summed Stress Score: 0 Summed Rest Score: 1 Summed Difference Score: 0 PERFUSION FINDINGS Fairly uniform microcuries uptake with no significant perfusion abnormalities FUNCTIONAL RESULTS (calculated via Gated SPECT) Stress Image LV EF (%): 73 Stress EDV (mL):90 TID: 0.82 Stress ESV (mL):24 FUNCTIONAL FINDINGS: Segmental wall motion analysis revealing no gross wall motion abnormalities IMPRESSIONS 1. Normal myocardial tracer uptake with no significant perfusion abnormalities 2. Normal LV ejection fraction of 73%. 3. LV wall motion analysis revealing no gross wall motion abnormalities. 4. Normal LV volume Low probability for coronary ischemia, based on the above findings Dr Ana Alejo MD FACC (Electronically Signed) Final Date: 04 February 2023 07:47 S
--- NOTE | 2023-02-01 10:15 | ECG_ITS ---
[facility] Test Date: 2023-02-01 Pat Name: Nasrin Odonnell Department: Room: Gender: Female Butter Wrapper: Ruben Pantoja : 1950 Requested By: Jayme Sales Order Number: [id number] Iris MD: Ana Alejo M.D. Interpretive Statements NAME OF STUDY: EXERCISE SESTAMIBI STRESS TEST INDICATION: Chest Pain, PROCEDURE: The baseline electrocardiogram showed normal sinus rhythm with a poor R wave progression suggesting old anteroseptal MT. Minimal left axis deviation. Somewhat difficult to interpret because of the baseline artifact.. At the baseline, the patient's blood pressure was 185/80 mm Hg with a heart rate of 63. The patient exercised for 7 minutes and 7 seconds on a standard Agto protocol. Patient attained a maximum heart rate of 151 beats per minute(101% of the maximum predicted heart rate) with a blood pressure at the peak exercise of 161/113 mm Hg. The EKG at the peak exercise could not be interpreted because of the heavy artifact. Patient did not have any chest pain or any significant arrhythmis with the exercise Sestamibi was injected 1 minute prior to the peak exercise During the recovery phase, there were no significant changes. Blood pressure at the end of the recovery phase was 194/64 mm Hg with a heart rate of 79 per minute. CONCLUSION: 1. EKG response to treadmill exercise is uninterpretable due to the heavy artifact 2. No exercise-induced chest pain or cardiac arrhythmia 3. Somewhat impaired exercise tolerance, attained a maximum of 7.0 METs 4. Sestamibi/Sestamibi perfusion results pending; see separate report. Electronically Signed On 02-08-2023 21:04:45 COUNTERINTELLIGENCE SPECIALIST by Ana Alejo M.D. [email or web address]
[2023-02-01 13:43] VITALS: BP 167/76; PULSE 75
== END 2023-02-01 09:26 | disposition home or self-care (01) ==
LOC: CDL 09:26
PROVIDERS: PCP Nurse Practitioner; Visit Provider Nurse Practitioner Family
DX: R55 Syncope and collapse (principal)
CPT/HCPCS: 36415; 78452; 93017; A9500

== ENCOUNTER → 2023-02-04 13:52 | Outpatient (BNVA) | payer MEDICARE, OTHER, SELFPAY | PROVIDERS: PCP Nurse Practitioner; Visit Provider Nurse Practitioner Family | DX: L71.8 Other rosacea (principal); L57.0 Actinic keratosis; L71.0 Perioral dermatitis; L57.8 Other skin changes due to chronic exposure to nonionizing radiation; L81.4 Other melanin hyperpigmentation | CPT/HCPCS: 17000; 99214 ==

== ENCOUNTER → 2023-02-18 08:53 | Outpatient (BNVA) | payer MEDICARE, OTHER, SELFPAY | PROVIDERS: PCP Nurse Practitioner; Visit Provider Nurse Practitioner | DX: I48.11 Longstanding persistent atrial fibrillation (principal) | CPT/HCPCS: 85610 ==

== ENCOUNTER → 2023-03-19 09:45 | Outpatient (BNVA) | payer MEDICARE, OTHER, SELFPAY | PROVIDERS: PCP Nurse Practitioner; Visit Provider Nurse Practitioner | DX: I48.11 Longstanding persistent atrial fibrillation (principal) | CPT/HCPCS: 85610 ==

== ENCOUNTER → 2023-04-08 11:16 | Outpatient (BNVA) | payer MEDICARE, OTHER, SELFPAY | PROVIDERS: PCP Nurse Practitioner; Visit Provider Nurse Practitioner Family | DX: L71.8 Other rosacea (principal); L71.0 Perioral dermatitis; L57.8 Other skin changes due to chronic exposure to nonionizing radiation; D22.4 Melanocytic nevi of scalp and neck; L81.4 Other melanin hyperpigmentation | CPT/HCPCS: 17000; 99213 ==

== ENCOUNTER → 2023-04-18 09:05 | Outpatient (BNVA) | payer MEDICARE, OTHER, SELFPAY | PROVIDERS: PCP Nurse Practitioner; Visit Provider Nurse Practitioner | DX: I48.11 Longstanding persistent atrial fibrillation (principal) | CPT/HCPCS: 85610 ==

== ENCOUNTER → 2023-05-20 12:47 | Outpatient (BNVA) | payer MEDICARE, OTHER, SELFPAY | PROVIDERS: PCP Nurse Practitioner; Visit Provider Nurse Practitioner | DX: I48.11 Longstanding persistent atrial fibrillation (principal); M25.59 Pain in other specified joint; M54.9 Dorsalgia, unspecified; R07.81 Pleurodynia | CPT/HCPCS: 71101; 72040; 72072; 72100; 73523; 85610 ==

== ENCOUNTER 2023-06-04 12:57 | Outpatient (CLI) | payer MEDICARE, OTHER, SELFPAY ==
--- NOTE | 2023-06-04 15:00 | CT_ITS ---
WS: [id number] CT HEAD TECHNIQUE: Noncontrast CT of the head obtained from the skullbase to the vertex. CLINICAL INFORMATION: R42 - Dizziness and giddiness COMPARISON: MRI 2013 DLP: 1039.[address] scans at [facility] use at least one of these dose optimization techniques: automated e xposure control; mA and/or kV adjustment per patient size (includes targeted exams where dose is matc hed to clinical indication); or iterative reconstruction. FINDINGS: No evidence of intracranial hemorrhage or mass effect. Ventricular system and basal cisterns are hernandez nt. Mild small vessel changes with mild parenchymal volume loss. No extra-axial fluid collections. No evidence of mass or mass effect. Normal robert-white differentiation. Paranasal sinuses and mastoid air cells are well aerated. .Normal visualized soft tissues. IMPRESSION: 1. No evidence of intracranial hemorrhage or mass effect. 2. Mild small vessel changes. Mild parenchymal volume loss slightly progressed compared to 2013. 3. No acute intracranial findings.
== END 2023-06-04 12:58 | disposition home or self-care (01) ==
LOC: RAD 12:58
PROVIDERS: PCP Nurse Practitioner; Visit Provider Nurse Practitioner
DX: R42 Dizziness and giddiness (principal); W19.XXXA Unspecified fall, initial encounter; Y92.009 Unspecified place in unspecified non-institutional (private) residence as the place of occurrence of the external cause; G40.109 Localization-related (focal) (partial) symptomatic epilepsy and epileptic syndromes with simple partial seizures, not intractable, without status epilepticus
CPT/HCPCS: 70450

== ENCOUNTER → 2023-06-12 11:12 | Outpatient (BNVA) | payer MEDICARE, OTHER, SELFPAY | PROVIDERS: PCP Nurse Practitioner; Visit Provider Specialist | DX: G40.109 Localization-related (focal) (partial) symptomatic epilepsy and epileptic syndromes with simple partial seizures, not intractable, without status epilepticus (principal) | CPT/HCPCS: 99213 ==

== ENCOUNTER → 2023-06-18 09:00 | Outpatient (BNVA) | payer MEDICARE, OTHER, SELFPAY | PROVIDERS: PCP Nurse Practitioner; Visit Provider Nurse Practitioner | DX: I48.11 Longstanding persistent atrial fibrillation (principal) | CPT/HCPCS: 85610 ==

== ENCOUNTER → 2023-07-17 08:13 | Outpatient (BNVA) | payer MEDICARE, OTHER, SELFPAY | PROVIDERS: PCP Nurse Practitioner; Visit Provider Nurse Practitioner | DX: I48.11 Longstanding persistent atrial fibrillation (principal) | CPT/HCPCS: 85610 ==

== ENCOUNTER → 2023-08-14 11:39 | Outpatient (BNVA) | payer MEDICARE, OTHER, SELFPAY | PROVIDERS: PCP Nurse Practitioner; Visit Provider Internal Medicine Cardiovascular Disease | DX: I48.11 Longstanding persistent atrial fibrillation (principal); Z79.01 Long term (current) use of anticoagulants; I10 Essential (primary) hypertension; E78.5 Hyperlipidemia, unspecified; F41.9 Anxiety disorder, unspecified; F32.A Depression, unspecified; F17.210 Nicotine dependence, cigarettes, uncomplicated | CPT/HCPCS: 99214 ==

== ENCOUNTER → 2023-08-15 09:03 | Outpatient (BNVA) | payer MEDICARE, OTHER, SELFPAY | PROVIDERS: PCP Nurse Practitioner; Visit Provider Nurse Practitioner | DX: I35.0 Nonrheumatic aortic (valve) stenosis (principal) | CPT/HCPCS: 85610 ==

== ENCOUNTER → 2023-09-09 09:56 | Outpatient (BNVA) | payer MEDICARE, OTHER, SELFPAY | PROVIDERS: PCP Nurse Practitioner; Visit Provider Nurse Practitioner | DX: I10 Essential (primary) hypertension (principal); F41.9 Anxiety disorder, unspecified; F32.A Depression, unspecified; I48.91 Unspecified atrial fibrillation; Z79.899 Other long term (current) drug therapy | CPT/HCPCS: 80053; 80061; 84443; 85610 ==

== ENCOUNTER → 2023-12-04 11:36 | Outpatient (BNVA) | payer MEDICARE, OTHER, SELFPAY | PROVIDERS: PCP Nurse Practitioner; Visit Provider Nurse Practitioner | DX: Z79.01 Long term (current) use of anticoagulants (principal); I10 Essential (primary) hypertension | CPT/HCPCS: 81000; 85610 ==

== ENCOUNTER → 2023-12-13 13:18 | Outpatient (BNVA) | payer MEDICARE, OTHER, SELFPAY | PROVIDERS: PCP Nurse Practitioner; Visit Provider Specialist | DX: F41.9 Anxiety disorder, unspecified; F32.A Depression, unspecified; G40.109 Localization-related (focal) (partial) symptomatic epilepsy and epileptic syndromes with simple partial seizures, not intractable, without status epilepticus | CPT/HCPCS: 99214 ==

== ENCOUNTER → 2024-01-27 11:15 | Outpatient (BNVA) | payer MEDICARE, OTHER, SELFPAY | PROVIDERS: PCP Nurse Practitioner; Visit Provider Nurse Practitioner | DX: I35.0 Nonrheumatic aortic (valve) stenosis (principal) | CPT/HCPCS: 85610 ==

== ENCOUNTER → 2024-02-11 11:17 | Outpatient (BNVA) | payer MEDICARE, OTHER, SELFPAY | PROVIDERS: PCP Nurse Practitioner; Visit Provider Nurse Practitioner | DX: J45.909 Unspecified asthma, uncomplicated (principal); I10 Essential (primary) hypertension; I48.11 Longstanding persistent atrial fibrillation; L84 Corns and callosities; Z79.01 Long term (current) use of anticoagulants | CPT/HCPCS: 80053; 80061; 85610 ==

== ENCOUNTER → 2024-02-17 13:45 | Outpatient (BNVA) | payer MEDICARE, OTHER, SELFPAY | PROVIDERS: PCP Nurse Practitioner; Visit Provider Internal Medicine Cardiovascular Disease | DX: I48.11 Longstanding persistent atrial fibrillation (principal); Z86.718 Personal history of other venous thrombosis and embolism; Z79.01 Long term (current) use of anticoagulants; I10 Essential (primary) hypertension; E78.5 Hyperlipidemia, unspecified | CPT/HCPCS: 99214 ==

== ENCOUNTER → 2024-02-20 12:51 | Outpatient (BNVA) | payer MEDICARE, OTHER, SELFPAY | PROVIDERS: PCP Nurse Practitioner; Visit Provider Podiatrist Foot & Ankle Surgery | DX: M21.611 Bunion of right foot (principal); L84 Corns and callosities; M20.41 Other hammer toe(s) (acquired), right foot | CPT/HCPCS: 99203 ==

== ENCOUNTER 2024-03-21 09:15 | Emergency (ER) | payer MEDICARE, OTHER, SELFPAY ==
[2024-03-21 10:10] VITALS: BP 165/77; PULSE 61; RESP 17; TEMP 36.7; O2SAT 94; BMI 30.7
--- NOTE | 2024-03-21 10:13 | XRR_ITS ---
PROCEDURE INFORMATION: Exam: XR Right Hand Exam date and time: 03/21/2024 10:26 AM Age: 74 years old Clinical indication: Injury or trauma; Other: Caught in car door; Blunt trauma (contusions or hematomas); Right; Prior surgery; Surgery date: 6+ months; Surgery type: RT hand; Additional info: Crush injury, caught in car door TECHNIQUE: Imaging protocol: Radiologic exam of the right hand. Views: 3 or more views. COMPARISON: No relevant prior studies available. FINDINGS: Bones/joints: No fracture or dislocation is appreciated. There is a fibro-osseous suture with respect to the proximal 1st phalanx. There is joint space narrowing with osteophyte formation involving the 1st carpometacarpal joint. Joint spaces are otherwise relatively well preserved. Bony mineralization is normal. Soft tissues: Normal. XR/XR hand RT min 3V* [id number] IMPRESSION: 1. 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
--- NOTE | 2024-03-21 11:18 | ED_ITS ---
HPI - Extremity Problem General: Chief complaint: Extremity Injury, Upper Stated complaint: Rt hand injury Time Seen by Provider: 03/21/24 10:46 Source: patient Mode of arrival: ambulatory Limitations: no limitations History of Present Illness: Patient presents emergency department today for evaluation treatment of injury to right fingers and right hand after closing it in a car door last night. Josseline lantigua states that she has had multiple injuries to the base of her thumb and the lateral portion of her hand. She does have pain there today but also indicates pain extending down the second metacarpal region and affecting the second and third digits. She still has mobility in it and has been wearing an old brace she had from a previous injury for comfort. However, she states she had a difficult time sleeping last night due to her pain. Related Data Home Medications Medication Instructions Recorded Confirmed nitroglycerin 0.4 mg sublingual 0.4 mg sublingual ONCE PRN 04/16/19 02/20/24 tablet (Nitrostat) Previous Rx's Medication Instructions Recorded psyllium husk 0.4 gram capsule 0.4 g PO DAILY #100 caps 01/11/22 (Metamucil) red yeast rice 600 mg tablet 600 mg PO DAILY #100 tabs 01/11/22 clobazam 10 mg tablet 10 mg PO DAILY #30 tabs 06/19/23 clobetasol 0.05 % topical gel 1 applic topical DAILY PRN itching 12/04/23 #60 grams fluticasone furoate 100 1 inh inhalation Q24H #60 ea 12/04/23 mcg-vilanterol 25 mcg/dose inhalation powder (Breo Ellipta) furosemide 40 mg tablet 40 mg PO QAM PRN edema #90 tabs 12/04/23 amlodipine 5 mg tablet 5 mg PO DAILY #90 tabs 12/13/23 levetiracetam 1,000 mg tablet See Rx Instructions .Route 12/13/23 .COMPLEX #360 tabs metoprolol tartrate 100 mg tablet See Rx Instructions .Route 12/13/23 .COMPLEX #180 tabs clomipramine 25 mg capsule 25 mg PO BID PRN anxiety #60 caps 01/28/24 warfarin 1 mg tablet 0.5 mg PO .5 days #15 tabs 01/28/24 warfarin 6 mg tablet 6 mg PO QDAY #30 tabs 01/28/24 albuterol sulfate 90 mcg/actuation 2 inh inhalation Q8H PRN shortness 02/11/24 aerosol inhaler (Ventolin HFA) of breath or wheezing #18 grams methocarbamol 500 mg tablet 500 mg PO BID #14 tabs 03/21/24 Allergies Allergy/AdvReac Type Severity Reaction Status Date / Time acetaminophen Allergy Unknown Unknown Verified 02/20/24 13:05 [From Darvocet-N] alendronate sodium Allergy Unknown Unknown Verified 02/20/24 13:05 [From Fosamax] codeine Allergy Unknown Unknown Verified 02/20/24 13:05 colestipol [From Colestid] Allergy Unknown Unknown Verified 02/20/24 13:05 ezetimibe [From Zetia] Allergy Unknown unknown Verified 02/20/24 13:05 hydrocodone [From Vicodin] Allergy Unknown rash Verified 02/20/24 13:05 ketorolac [From Toradol] Allergy Unknown rash Verified 02/20/24 13:05 levofloxacin [From Levaquin] Allergy Unknown rash Verified 02/20/24 13:05 metronidazole Allergy Unknown Unknown Verified 02/20/24 13:05 oxycodone [From Percocet] Allergy Unknown rash Verified 02/20/24 13:05 Penicillins Allergy Unknown rash Verified 02/20/24 13:05 promethazine Allergy Unknown head pain Verified 02/20/24 13:05 propoxyphene Allergy Unknown Unknown Verified 02/20/24 13:05 [From Darvocet-N] simvastatin Allergy Unknown rash Verified 02/20/24 13:05 Sulfa (Sulfonamide Allergy Unknown Unknown Verified 02/20/24 13:05 Antibiotics) tizanidine Allergy Unknown Unknown Verified 02/20/24 13:05 tramadol Allergy Unknown chest pain Verified 02/20/24 13:05 cephalexin [From Keflex] Allergy red Verified 02/20/24 13:05 splotches all over body citalopram Allergy ALGY-Rash Verified 02/20/24 13:05 doxycycline Allergy ALGY-RASH Verified 02/20/24 13:05 Review of Systems General: Reports: 10 or more systems reviewed and unremarkable except in HPI and below PFSH ED PFSH: Medical History Rosacea RAD (reactive airway disease) with wheezing Thyroid goiter Atypical chest pain Dyslipidemia Benign essential hypertension with target blood pressure below 140/90 History of hepatitis A Spine pain, lumbar History of DVT of lower extremity Left leg angiogram attempted on leg 2009 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 Dr. Soares advised her to stay on Coumadin Anxiety DDD (degenerative disc disease), thoracic Benign hypertension Mixed hyperlipidemia Surgical History History of appendectomy 1975 History of hysterectomy 1976 with BSO History of shoulder surgery 2008 left History of tonsillectomy 2005 History of tubal ligation 1974 Family History Father Cancer Hypertension Heart disease Bleeding disorder Clotting disorder CAD (coronary artery disease) Dementia Diabetes Lung disease Mother Diabetes Stroke Hypertension Heart disease Daughter Diabetes Grandmother Hypertension Heart disease Diabetes Stroke Sister Bleeding disorder Clotting disorder Brother Bleeding disorder Clotting disorder Family/Other Bleeding disorder Clotting disorder Denies family history of Chronic kidney disease (CKD) Suicide Anesthesia complication Social History Smoking and tobacco/nicotine status: never used tobacco/nicotine Second hand smoke exposure: No Alcohol intake: never Substance/Drug Use: never Adopted: No Caregiver/support person: No Lives independently: Yes Household members: spouse Housing: House Marital status: Number of children: 4 service: No Current occupational status: retired Do you think of yourself as: Straight/Heterosexual Current gender identity: Female Physical Exam Const: COMMON NORMALS: no acute distress, patient oriented x3 and alert HENMT: COMMON NORMALS: normocephalic, atraumatic and hearing grossly normal bilaterally HEAD & SCALP: normocephalic and atraumatic Eye: COMMON NORMALS: Equal, round and reactive pupils present, EOMs intact bilaterally and conjunctivae normal CONJUNCTIVA: Yes conjunctivae normal PUPIL: Yes Equal, round and reactive pupils present Neck/C-Spine: COMMON NORMALS: full ROM and no JVD Lymph: LYMPHATIC: no lymphadenopathy noted Resp: COMMON NORMALS: normal respiratory effort, No retractions and No use of accessory muscles Cardio: COMMON NORMALS: no JVD and regular rate RATE: regular rate Extremity: NARRATIVE EXTREMITY EXAM: Patient has some swelling noted around the second MCP joint. No obvious bruising into the hand but some bruising of the second digit. Flexion extension capabilities intact to the fingers of the right hand. Neuro: COMMON NORMALS: patient oriented x3 SENSORIUM/ORIENTATION: Yes alert Psych: COMMON NORMALS: mental status grossly normal, Normal thought process present, cooperative and normal affect THOUGHT PROCESS: Normal thought process present Skin: COMMON NORMALS: no rashes or lesions noted and turgor normal GENERAL SKIN EXAM: no rashes or lesions noted and turgor normal Course Vital Signs: Vital signs: Vital Signs Temperature 98.1 F 03/21/24 10:10 Pulse Rate 61 03/21/24 10:10 Respiratory Rate 17 03/21/24 10:10 Blood Pressure 165/77 03/21/24 10:10 Pulse Oximetry 94 03/21/24 10:10 Oxygen Delivery Me thod Room Air 03/21/24 10:10 MDM - Extremity (Nontraumatic) Medical Decision Making Patient presents emergency department today for evaluation treatment of right hand injury last night after getting it caught in a car door. X-ray today is negative for signs for any acute fracture but, explained to her that in the area of the base of her right thumb, has significant osteoarthritis-could possibly be from recurrent injuries in this area. Unfortunately, can take a couple of weeks for pain, swelling, and mobility to return to normal. She indicates that her good brace is in storage somewhere as she has recently been moving. We discussed getting her a spica brace from the emergency department today but, also splinting and immobilizing the digits 2 and 3 with AlumaFoam and socorro taping. Patient does not do well with pain medications. Reports that the last time she broke her hand they provided her a very low-dose of a muscle relaxer which she did just fine with. I do not see it listed in her past medicines list but, patient has tizanidine listed as an allergy. We will try methocarbamol as I can provide a low-dose, infrequently through the day for her symptoms. However, she will be given strict cautions regarding sedation and drowsiness with this medication. Patient needs to follow-up with her primary care doctor in the next week or so for recheck. She verbalizes understanding and agreement to treatment plan. Differential Diagnosis Unlikely herpes zoster, gout, cellulitis, superficial thrombophlebitis or deep venous thrombosis of upper extremity Lab Data Radiology Impressions Hand X-Ray 03/21/24 10:13 IMPRESSION: 1. 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 All radiology interpretation(s) finalized by discharge Discharge Plan Discharge Patient Disposition: Home Clinical Impression: Contusion of finger of right hand, Contusion of right hand, initial encounter Condition: Stable Prescriptions: New methocarbamol 500 mg tablet 500 mg PO BID Qty: 14 0RF No Action nitroglycerin [Nitrostat] 0.4 mg tablet, sublingual 0.4 mg SUBLINGUAL ONCE PRN clobazam 10 mg tablet 10 mg PO DAILY Qty: 30 5RF Rx Instructions: Take in the evening for seizure prevention levetiracetam 1,000 mg tablet See Rx Instructions .ROUTE .COMPLEX Qty: 360 3RF Dose Instruction: TAKE TWO TABLETS BY MOUTH TWICE DAILY Rx Instructions: 2000 mg BY MOUTH TWICE DAILY, total 4000 mg metoprolol tartrate 100 mg tablet See Rx Instructions .ROUTE .COMPLEX Qty: 180 3RF Dose Instruction: TAKE ONE TABLET BY MOUTH TWICE DAILY Rx Instructions: TAKE ONE TABLET BY MOUTH TWICE DAILY amlodipine 5 mg tablet 5 mg PO DAILY Qty: 90 3RF furosemide 40 mg tablet 40 mg PO QAM PRN (Reason: edema) Qty: 90 1RF fluticasone furoate-vilanterol [Breo Ellipta] 100-25 mcg/dose blister with device 1 inh inhalation Q24H Qty: 60 5RF clobetasol 0.05 % gel 1 applic topical DAILY PRN (Reason: itching) Qty: 60 0RF albuterol sulfate [Ventolin HFA] 90 mcg/actuation HFA aerosol inhaler 2 inh inhalation Q8H PRN (Reason: shortness of breath or wheezing) Qty: 18 5RF warfarin 6 mg tablet 6 mg PO QDAY Qty: 30 1RF Protocol: Dose Management Condition: Saturday Dose/Route: 6.5 mg Instruction: 6.5 x 1 mg tablets Condition: Saturday Dose/Route: 6.5 mg Instruction: 6.5 x 1 mg tablets Condition: Saturday Dose/Route: 6.5 mg Instruction: 6.5 x 1 mg tablets Condition: Saturday Dose/Route: 6.5 mg Instruction: 6.5 x 1 mg tablets Condition: Dose/Route: 6.5 mg Instruction: 6.5 x 1 mg tablets Condition: Saturday Dose/Route: 6.5 mg Instruction: 6.5 x 1 mg tablets Condition: Saturday Dose/Route: 6.5 mg Instruction: 6.5 x 1 mg tablets Protocol Text: Adjustment Start Date: Saturday04/12/21 INR Value: 20.10 SECONDS INR Date: 04/12/21 Recheck Date: 05/12/21 warfarin 1 mg tablet 0.5 mg PO .5 days Qty: 15 1RF Protocol: Dose Management Condition: Saturday Dose/Route: 6.5 mg Instruction: 6.5 x 1 mg tablets Condition: Saturday Dose/Route: 6.5 mg Instruction: 6.5 x 1 mg tablets Condition: Saturday Dose/Route: 6.5 mg Instruction: 6.5 x 1 mg tablets Condition: Saturday Dose/Route: 6.5 mg Instruction: 6.5 x 1 mg tablets Condition: Dose/Route: 6.5 mg Instruction: 6.5 x 1 mg tablets Condition: Saturday Dose/Route: 6.5 mg Instruction: 6.5 x 1 mg tablets Condition: Saturday Dose/Route: 6.5 mg Instruction: 6.5 x 1 mg tablets Protocol Text: Adjustment Start Date: Saturday04/12/21 INR Value: 20.10 SECONDS INR Date: 04/12/21 Recheck Date: 05/12/21 Rx Instructions: take with 6mg=6.5mg 5days week clomipramine 25 mg capsule 25 mg PO BID PRN (Reason: anxiety) Qty: 60 0RF red yeast rice 600 mg tablet 600 mg PO DAILY Qty: 100 3RF Rx Instructions: give with meal/snack psyllium husk [Metamucil] 0.4 gram capsule 0.4 g PO DAILY Qty: 100 3RF Discharge Orders: Discharge ED (Routine); Ordered 03/21/24 Ordered By: Jen Connolly Referrals: Taj José, [facility] [Primary Care Provider] - Patient Instructions: Crush Injury (ED) Activity Restrictions/Additional Instructions: X-ray today was negative for signs of acute fracture but you do have obvious osteoarthritic changes-most likely due to repeat injury, to the area below your thumb. Unfortunately, due to your injury you may be stiff, sore, and swollen for a couple of weeks. I encourage you to wear the supportive brace to help immobilize the area to allow for healing during this time. You can still apply ice for 15 to 20 minutes every couple of hours for discomfort. Have also provided you a short course of some muscle relaxer as we had discussed. As with any muscle relaxer, this medication can make you feel drowsy, sedated, and dizzy. Do not drive while taking this medication. If you feel too dizzy to walk, I do not recommend taking any more of that medication as your risk for falling does increase. Please have follow-up appoint with your primary care doctor next week or, after the holiday for an overall recheck. Coding Level of Care Code ED Assisted Living Assistant for Luci James
[2024-03-21 12:13] VITALS: BP 147/82; PULSE 66; O2SAT 95
== END 2024-03-21 12:14 | disposition home or self-care (01) ==
PROVIDERS: Emergency Provider Physician Assistant; PCP Nurse Practitioner
DX: S60.00XA Contusion of unspecified finger without damage to nail, initial encounter (principal); S60.221A Contusion of right hand, initial encounter; W23.0XXA Caught, crushed, jammed, or pinched between moving objects, initial encounter; I10 Essential (primary) hypertension; E78.5 Hyperlipidemia, unspecified
CPT/HCPCS: 73130; 99283

== ENCOUNTER → 2024-03-30 16:06 | Outpatient (BNVA) | payer MEDICARE, OTHER, SELFPAY | PROVIDERS: PCP Nurse Practitioner; Visit Provider Clinical Nurse Specialist Adult Health | DX: I35.0 Nonrheumatic aortic (valve) stenosis (principal) | CPT/HCPCS: 85610 ==

== ENCOUNTER → 2024-04-21 10:54 | Outpatient (BNVA) | payer MEDICARE, OTHER, SELFPAY | PROVIDERS: PCP Nurse Practitioner; Visit Provider Nurse Practitioner | DX: I48.11 Longstanding persistent atrial fibrillation (principal); Z79.01 Long term (current) use of anticoagulants; J45.909 Unspecified asthma, uncomplicated; I10 Essential (primary) hypertension | CPT/HCPCS: 85610 ==

== ENCOUNTER 2024-05-16 14:26 | Emergency (ER) | payer MEDICARE, OTHER, SELFPAY ==
[2024-05-16 14:27] VITALS: BP 165/68; PULSE 63; RESP 18; TEMP 36.7; O2SAT 95; BMI 29.9
--- NOTE | 2024-05-16 14:36 | ED_ITS ---
HPI - Seizure 2 General: Chief Complaint: Seizure Stated Complaint: seizure; tremors Time Seen by Provider: 05/16/24 14:30 Source: patient and EMS Mode of arrival: EMS Limitations: no limitations History of Present Illness: HPI Narrative: 74-year-old female who is here with EMS after having a seizure. She states she has had seizures for a long time she is on Keppra states she has not missed any doses. Had a seizure today lasted roughly 1 to 2 minutes she is now back to her baseline she denies headache she denies any recent illness she denies hitting her head or having a headache Associated symptoms: Deny chest pain, chills or fever(s) Related Data Home Medications ?Medication ?Instructions ?Recorded ?Confirmed nitroglycerin 0.4 mg sublingual 0.4 mg sublingual ONCE PRN 04/16/19 04/21/24 tablet (Nitrostat) Previous Rx's ?Medication ?Instructions ?Recorded psyllium husk 0.4 gram capsule 0.4 g PO DAILY #100 cap s 01/11/22 (Metamucil) red yeast rice 600 mg tablet 600 mg PO DAILY #100 tabs 01/11/22 clobazam 10 mg tablet 10 mg PO DAILY #30 tabs 05/31 clobetasol 0.05 % topical gel 1 applic topical DAILY P RN itching 12/04/23 #60 grams amlodipine 5 mg tablet 5 mg PO DAILY #90 tabs 12/12 levetiracetam 1,000 mg tablet See Rx Instructions .Rou te 12/13/23 .COMPLEX #360 tabs metoprolol tartrate 100 mg tablet See Rx Instructions .Route 12/13/23 .COMPLEX #180 tabs clomipramine 25 mg capsule 25 mg PO BID PRN anxiety #6 0 caps 01/28/24 albuterol sulfate 90 mcg/actuation 2 inh inhalation Q8 H PRN shortness 04/21/24 aerosol inhaler (Ventolin HFA) of breath or wheezing # 18 grams fluticasone furoate 100 1 inh inhalation Q24H #60 ea 04/21/24 mcg-vilanterol 25 mcg/dose inhalation powder (Breo Ellipta) furosemide 40 mg tablet 40 mg PO QAM PRN edema #90 t abs 04/21/24 warfarin 1 mg tablet 0.5 mg PO .4 days week #15 t abs 04/21/24 warfarin 6 mg tablet 6 mg PO QDAY #30 tabs Allergies Allergy/AdvReac Type Severity Reaction Status Date / Time acetaminophen (From Allergy Unknown Unknown Verified 04/21/24 10:17 Darvocet-N) alendronate sodium (From Allergy Unknown Unknown Verified 04/21/24 10:17 Fosamax) codeine Allergy Unknown Unknown Verified 04/21/24 10:17 colestipol (From Colestid) Allergy Unknown Unknown Verified 04/21/24 10:17 ezetimibe (From Zetia) Allergy Unknown unknown Verified 04/21/24 10:17 hydrocodone (From Vicodin) Allergy Unknown rash Verified 04/21/24 10:17 ketorolac (From Toradol) Allergy Unknown rash Verified 04/21/24 10:17 levofloxacin (From Levaquin) Allergy Unknown rash Verified 04/21/24 10:17 metronidazole Allergy Unknown Unknown Verified 04/21/24 10:17 oxycodone (From Percocet) Allergy Unknown rash Verified 04/21/24 10:17 Penicillins Allergy Unknown rash Verified 04/21/24 10:17 promethazine Allergy Unknown head pain Verified 04/21/24 10:17 propoxyphene (From Allergy Unknown Unknown Verified 04/21/24 10:17 Darvocet-N) simvastatin Allergy Unknown rash Verified 04/21/24 10:17 Sulfa (Sulfonamide Allergy Unknown Unknown Verified 04/21/24 10:17 Antibiotics) tizanidine Allergy Unknown Unknown Verified 04/21/24 10:17 tramadol Allergy Unknown chest pain Verified 04/21/24 10:17 cephalexin (From Keflex) Allergy red Verified 04/21/24 10:17 splotches all over body citalopram Allergy ALGY-Rash Verified 04/21/24 10:17 doxycycline Allergy ALGY-RASH Verified 04/21/24 10:17 Review of Systems 2 Const: Denies: fever(s), chills, body aches or change in appetite Eyes: Denies: blurry vision or eye discomfort ENMT: Denies: throat pain or dental pain Card: Denies: chest pain Resp: Denies: dyspnea GI: Denies: abdominal pain, nausea, vomiting or diarrhea Musc: Denies: neck pain or back pain Skin/Breast: Denies: rash Neuro: Reports: seizure-like activity; Denies: headache(s) [facility] ED 2 PFSH: Medical History Rosacea RAD (reactive airway disease) with wheezing Thyroid goiter Atypical chest pain Dyslipidemia Benign essential hypertension with target blood pressure below 140/90 History of hepatitis A Spine pain, lumbar History of DVT of lower extremity Left leg angiogram attempted on leg 2009 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 Dr. Soares advised her to stay on Coumadin Anxiety DDD (degenerative disc disease), thoracic Benign hypertension Mixed hyperlipidemia Surgical History History of appendectomy 1975 History of hysterectomy 1976 with BSO History of shoulder surgery 2008 left History of tonsillectomy 2005 History of tubal ligation 1975 Family History Father Cancer Hypertension Heart disease Bleeding disorder Clotting disorder CAD (coronary artery disease) Dementia Diabetes Lung disease Mother Diabetes Stroke Hypertension Heart disease Daughter Diabetes Grandmother Hypertension Heart disease Diabetes Stroke Sister Bleeding disorder Clotting disorder Brother Bleeding disorder Clotting disorder Family/Other Bleeding disorder Clotting disorder Denies family history of Chronic kidney disease (CKD) Suicide Anesthesia complication Social History Smoking and tobacco/nicotine status: never used tobacco/nicotine Second hand smoke exposure: No Alcohol intake: never Substance/Drug Use: never Adopted: No Caregiver/support person: No Lives independently: Yes Household members: spouse Housing: House Marital status: Number of children: 4 service: No Current occupational status: retired Do you think of yourself as: Straight/Heterosexual Current gender identity: Female Physical Exam 2 Const: COMMON NORMALS: no acute distress, patient oriented x3 and healthy appearing HENMT: COMMON NORMALS: normocephalic and atraumatic HEAD & SCALP: n ormocephalic and atraumatic Eye: COMMON NORMALS: Equal, round and reactive pupils present and EOMs intact bilaterally PUPIL: Yes Equal, round and reactive pupils present Neck/C-Spine: COMMON NORMALS: full ROM and supple Chest: COMMONS NORMALS: normal inspection of the chest Resp: COMMON NORMALS: normal respiratory effort, No retractions, No use of accessory muscles and clear to auscultation bilaterally AUSCULTATION: clear to auscultation bilaterally Cardio: COMMON NORMALS: regular rate, regular rhythm and No murmurs present (Cardio) RATE: regular rate RHYTHM: regular rhythm Extremity: COMMON NORMALS: normal to inspection and full ROM Neuro: COMMON NORMALS: patient oriented x3, moves all extremities and no focal motor deficits Psych: COMMON NORMALS: mental status grossly normal, Normal thought process present and cooperative THOUGHT PROCESS: Normal thought process present Skin: COMMON NORMALS: no rashes or lesions noted and no wounds GENERAL SKIN EXAM: no rashes or lesions noted Course 2 Vital Signs: Vital signs: Vital Signs Temperature 98.1 F 05/16/24 14:27 Pulse Rate 63 05/16/24 14:27 Respiratory Rate 18 05/16/24 14:27 Blood Pressure 165/68 05/16/24 14:27 Pulse Oximetry 95 05/16/24 14:27 Oxygen Delivery Me thod Room Air 05/16/24 14:27 MDM - Seizure MDM Narrative Medical decision making narrative: Patient presents here after seizure she has a long history of seizures patient is well-appearing here at her baseline she is stable for discharge follow-up PCP return if worsening. Lab Data 05/16/24 14:45 Labs: Laboratory Results Sodium 139 mmol/L (136-145) 05/16/24 14:45 Potassium 3.8 mmol/L (3.5-5.1) 05/16/24 14:45 Chloride 100 mmol/L (98-107) 05/16/24 14:45 Carbon Dioxide 28 mmol/L (22-29) 05/16/24 14:45 Anion Gap 14.8 (5-19) 05/16/24 14:45 BUN 10 mg/dL (8-23) 05/16/24 14:45 Creatinine 0.8 mg/dL (0.5-0.9) 05/16/24 14:45 GFR Calculation Not Reportable 05/16/24 14:45 Glucose 117 mg/dL (65-115) H 05/16/24 14:45 Calculated Osmolality 288 mOsm/kg (285-295) 05/16/24 14:45 Calcium 9.3 mg/dL (8.5-10.5) 05/16/24 14:45 No radiology studies performed this visit Discharge Plan Discharge Patient Disposition: Home Clinical Impression: Generalized seizure Condition: Stable Prescriptions: No Action nitroglycerin [Nitrostat] 0.4 mg tablet, sublingual 0.4 mg SUBLINGUAL ONCE PRN clobazam 10 mg tablet 10 mg PO DAILY Qty: 30 5RF Rx Instructions: Take in the evening for seizure prevention levetiracetam 1,000 mg tablet See Rx Instructions .ROUTE .COMPLEX Qty: 360 3RF Dose Instruction: TAKE TWO TABLETS BY MOUTH TWICE DAILY Rx Instructions: 2000 mg BY MOUTH TWICE DAILY, total 4000 mg metoprolol tartrate 100 mg tablet See Rx Instructions .ROUTE .COMPLEX Qty: 180 3RF Dose Instruction: TAKE ONE TABLET BY MOUTH TWICE DAILY Rx Instructions: TAKE ONE TABLET BY MOUTH TWICE DAILY amlodipine 5 mg tablet 5 mg PO DAILY Qty: 90 3RF clobetasol 0.05 % gel 1 applic topical DAILY PRN (Reason: itching) Qty: 60 0RF clomipramine 25 mg capsule 25 mg PO BID PRN (Reason: anxiety) Qty: 60 0RF fluticasone furoate-vilanterol [Breo Ellipta] 100-25 mcg/dose blister with device 1 inh inhalation Q24H Qty: 60 5RF furosemide 40 mg tablet 40 mg PO QAM PRN (Reason: edema) Qty: 90 1RF albuterol sulfate [Ventolin HFA] 90 mcg/actuation HFA aerosol inhaler 2 inh inhalation Q8H PRN (Reason: shortness of breath or wheezing) Qty: 18 5RF warfarin 6 mg tablet 6 mg PO QDAY Qty: 30 1RF Protocol: Dose Management Condition: Saturday Dose/Route: 6.5 mg Instruction: 6.5 x 1 mg tablets Condition: Saturday Dose/Route: 6.5 mg Instruction: 6.5 x 1 mg tablets Condition: Saturday Dose/Route: 6.5 mg Instruction: 6.5 x 1 mg tablets Condition: Saturday Dose/Route: 6.5 mg Instruction: 6.5 x 1 mg tablets Condition: Dose/Route: 6.5 mg Instruction: 6.5 x 1 mg tablets Condition: Saturday Dose/Route: 6.5 mg Instruction: 6.5 x 1 mg tablets Condition: Saturday Dose/Route: 6.5 mg Instruction: 6.5 x 1 mg tablets Protocol Text: Adjustment Start Date: Saturday04/12/21 INR Value: 20.10 SECONDS INR Date: 04/12/21 Recheck Date: 05/12/21 warfarin 1 mg tablet 0.5 mg PO .4 days week Qty: 15 1RF Protocol: Dose Management Condition: Saturday Dose/Route: 6.5 mg Instruction: 6.5 x 1 mg tablets Condition: Saturday Dose/Route: 6.5 mg Instruction: 6.5 x 1 mg tablets Condition: Saturday Dose/Route: 6.5 mg Instruction: 6.5 x 1 mg tablets Condition: Saturday Dose/Route: 6.5 mg Instruction: 6.5 x 1 mg tablets Condition: Dose/Route: 6.5 mg Instruction: 6.5 x 1 mg tablets Condition: Saturday Dose/Route: 6.5 mg Instruction: 6.5 x 1 mg tablets Condition: Saturday Dose/Route: 6.5 mg Instruction: 6.5 x 1 mg tablets Protocol Text: Adjustment Start Date: Saturday04/12/21 INR Value: 20.10 SECONDS INR Date: 04/12/21 Recheck Date: 05/12/21 Rx Instructions: 0.5mg with 6mg 4 days week red yeast rice 600 mg tablet 600 mg PO DAILY Qty: 100 3RF Rx Instructions: give with meal/snack psyllium husk [Metamucil] 0.4 gram capsule 0.4 g PO DAILY Qty: 100 3RF Discharge Orders: Discharge ED (Routine); Ordered 05/16/24 Ordered By: Chandni Saxena Referrals: Taj José FNP-C [Primary Care Provider] - 4-7 days Discharge Diet: Advance as tolerated Discharge Activity: Resume usual activity Patient Instructions: Generalized Tonic Clonic Seizures (ED) Print Language: Wolof Coding Level of Care Code ED Wet Process Miller Head Assistant for Luci James
[2024-05-16 15:17] LABS: Anion Gap 14.8 (5-19); Blood Urea Nitrogen 10 mg/dL (8-23); Calcium 9.3 mg/dL (8.5-10.5); Carbon Dioxide 28 mmol/L (22-29); Chloride 100 mmol/L (98-107); Creatinine Clr Calc Pharmacy 68.5449; Glucose 117 mg/dL (65-115); Osmolality Calculated 288 mOsm/kg (285-295); Potassium 3.8 mmol/L (3.5-5.1); Sodium 139 mmol/L (136-145)
[2024-05-16 15:46] VITALS: BP 177/75; PULSE 65; O2SAT 98
== END 2024-05-16 15:47 | disposition home or self-care (01) ==
PROVIDERS: Emergency Provider Emergency Medicine; PCP Nurse Practitioner
DX: G40.89 Other seizures (principal); Z79.01 Long term (current) use of anticoagulants; E78.2 Mixed hyperlipidemia; I10 Essential (primary) hypertension
CPT/HCPCS: 36415; 80048; 99283

== ENCOUNTER → 2024-05-27 14:39 | Outpatient (BNVA) | payer MEDICARE, OTHER, SELFPAY | PROVIDERS: PCP Nurse Practitioner; Visit Provider Clinical Nurse Specialist Adult Health | DX: J06.9 Acute upper respiratory infection, unspecified (principal); J45.901 Unspecified asthma with (acute) exacerbation; J45.20 Mild intermittent asthma, uncomplicated | CPT/HCPCS: 87400; 87426 ==

== ENCOUNTER → 2024-06-11 12:46 | Outpatient (BNVA) | payer MEDICARE, OTHER, SELFPAY | PROVIDERS: PCP Nurse Practitioner; Visit Provider Specialist | DX: G40.309 Generalized idiopathic epilepsy and epileptic syndromes, not intractable, without status epilepticus (principal); L71.9 Rosacea, unspecified | CPT/HCPCS: 99214 ==

== ENCOUNTER → 2024-06-16 13:00 | Outpatient (BNVA) | payer MEDICARE, OTHER, SELFPAY | PROVIDERS: PCP Nurse Practitioner; Visit Provider Podiatrist Foot & Ankle Surgery | DX: M21.611 Bunion of right foot (principal); L84 Corns and callosities; M20.41 Other hammer toe(s) (acquired), right foot | CPT/HCPCS: 99213 ==

== ENCOUNTER → 2024-06-25 10:00 | Outpatient (BNVA) | payer MEDICARE, OTHER, SELFPAY | PROVIDERS: PCP Nurse Practitioner; Visit Provider Nurse Practitioner Family | DX: L82.0 Inflamed seborrheic keratosis (principal); L71.8 Other rosacea; T49.0X5A Adverse effect of local antifungal, anti-infective and anti-inflammatory drugs, initial encounter; L57.8 Other skin changes due to chronic exposure to nonionizing radiation; D22.5 Melanocytic nevi of trunk | CPT/HCPCS: 17000; 99213 ==

== ENCOUNTER → 2024-06-30 11:01 | Outpatient (BNVA) | payer MEDICARE, OTHER, SELFPAY | PROVIDERS: PCP Nurse Practitioner; Visit Provider Nurse Practitioner | DX: I35.0 Nonrheumatic aortic (valve) stenosis (principal) | CPT/HCPCS: 85610 ==

== ENCOUNTER 2024-08-06 10:19 | Outpatient (CLI) | payer MEDICARE, OTHER, SELFPAY ==
--- NOTE | 2024-08-06 10:22 | XR_ITS ---
WS: [id number] XR ribs RT 2V* [id number] REASON FOR EXAM: R07.81 - Pleurodynia FINDINGS: No acute rib fracture is identified. Previous examination of 05/20/2023 was reviewed and no callus formation is identified in the right sixth or seventh ribs anteriorly where possible acute fractures were described. No significant lung or pleural abnormality is identified. XR/XR ribs RT 2V* [id number] IMPRESSION: No acute rib abnormality.
== END 2024-08-06 10:20 | disposition home or self-care (01) ==
LOC: RAD 10:21
PROVIDERS: PCP Nurse Practitioner; Visit Provider Clinical Nurse Specialist Adult Health
DX: R07.81 Pleurodynia (principal)
CPT/HCPCS: 71100

== ENCOUNTER → 2024-08-18 10:38 | Outpatient (BNVA) | payer MEDICARE, OTHER, SELFPAY | PROVIDERS: PCP Nurse Practitioner; Visit Provider Nurse Practitioner Family | DX: I48.11 Longstanding persistent atrial fibrillation (principal); Z79.01 Long term (current) use of anticoagulants; Z86.718 Personal history of other venous thrombosis and embolism; I10 Essential (primary) hypertension; E78.5 Hyperlipidemia, unspecified | CPT/HCPCS: 99213 ==

== ENCOUNTER → 2024-08-25 10:17 | Outpatient (BNVA) | payer MEDICARE, OTHER, SELFPAY | PROVIDERS: PCP Nurse Practitioner; Visit Provider Nurse Practitioner Family | DX: L71.8 Other rosacea (principal); T46.0X5A Adverse effect of cardiac-stimulant glycosides and drugs of similar action, initial encounter; L57.8 Other skin changes due to chronic exposure to nonionizing radiation; D22.4 Melanocytic nevi of scalp and neck; L81.4 Other melanin hyperpigmentation; X58.XXXA Exposure to other specified factors, initial encounter | CPT/HCPCS: 99214 ==

== ENCOUNTER → 2024-08-28 14:25 | Outpatient (BNVA) | payer MEDICARE, OTHER, SELFPAY | PROVIDERS: PCP Nurse Practitioner; Visit Provider Clinical Nurse Specialist Adult Health | DX: I35.0 Nonrheumatic aortic (valve) stenosis (principal); R30.0 Dysuria | CPT/HCPCS: 81000; 85610 ==

== ENCOUNTER → 2024-09-09 12:07 | Outpatient (BNVA) | payer MEDICARE, OTHER, SELFPAY | PROVIDERS: PCP Nurse Practitioner; Visit Provider Nurse Practitioner | DX: R30.0 Dysuria (principal); I10 Essential (primary) hypertension; E78.5 Hyperlipidemia, unspecified | CPT/HCPCS: 80053; 80061; 81000; 84443; 85025; 87077; 87086; 87184 ==

== ENCOUNTER → 2024-09-15 11:18 | Outpatient (BNVA) | payer MEDICARE, OTHER, SELFPAY | PROVIDERS: PCP Nurse Practitioner; Visit Provider Podiatrist Foot & Ankle Surgery | DX: L84 Corns and callosities (principal); M21.611 Bunion of right foot; M20.41 Other hammer toe(s) (acquired), right foot | CPT/HCPCS: 99213 ==

== ENCOUNTER 2024-09-16 11:34 | Outpatient (CLI) | payer MEDICARE, OTHER, SELFPAY ==
--- NOTE | 2024-09-16 12:15 | US_ITS ---
WS: [id number] RENAL ULTRASOUND HISTORY: R31.9 - Hematuria, unspecified COMPARISON: 01/24/2021 TECHNIQUE: 2-D and color Doppler imaging of the kidney submitted. Right kidney: 11.0 cm x 4.4 cm x 4.0 cm. Cortex: 1.0 cm Normal echogenicity with no hydronephrosis or mass. Left kidney: 10.0 cm x 4.1 cm x 4.8 cm. Cortex: 1.1 cm Normal echogenicity with no hydronephrosis or mass. Aorta: Normal. Urinary Bladder: Nondistended urinary bladder. US/US renal BI* [id number] IMPRESSION: Normal renal ultrasound. No renal mass or obstruction. Nondistended urinary bladder.
== END 2024-09-16 11:35 | disposition home or self-care (01) ==
PROVIDERS: PCP Nurse Practitioner; Visit Provider Nurse Practitioner
DX: R31.9 Hematuria, unspecified (principal)
CPT/HCPCS: 76770

== ENCOUNTER → 2024-10-29 09:35 | Outpatient (BNVA) | payer MEDICARE, OTHER, SELFPAY | PROVIDERS: PCP Nurse Practitioner; Visit Provider Nurse Practitioner | DX: Z86.718 Personal history of other venous thrombosis and embolism (principal) | CPT/HCPCS: 85610 ==

== ENCOUNTER → 2024-11-25 09:22 | Outpatient (BNVA) | payer MEDICARE, OTHER, SELFPAY | PROVIDERS: PCP Nurse Practitioner; Visit Provider Nurse Practitioner | DX: Z79.01 Long term (current) use of anticoagulants (principal) | CPT/HCPCS: 85610 ==

== ENCOUNTER → 2024-12-14 13:31 | Outpatient (BNVA) | payer MEDICARE, OTHER, SELFPAY | PROVIDERS: PCP Nurse Practitioner; Visit Provider Clinical Nurse Specialist Adult Health | DX: J06.9 Acute upper respiratory infection, unspecified (principal) | CPT/HCPCS: 87426 ==

== ENCOUNTER → 2024-12-22 11:06 | Outpatient (BNVA) | payer MEDICARE, OTHER, SELFPAY | PROVIDERS: PCP Nurse Practitioner; Visit Provider Podiatrist Foot & Ankle Surgery | DX: L84 Corns and callosities (principal); M21.611 Bunion of right foot; M20.41 Other hammer toe(s) (acquired), right foot | CPT/HCPCS: 99213 ==

== ENCOUNTER → 2024-12-31 14:01 | Outpatient (BNVA) | payer MEDICARE, OTHER, SELFPAY | PROVIDERS: PCP Nurse Practitioner; Visit Provider Nurse Practitioner | DX: R30.0 Dysuria (principal) | CPT/HCPCS: 81000; 87086 ==

== ENCOUNTER → 2025-01-05 16:08 | Outpatient (BNVA) | payer MEDICARE, OTHER, SELFPAY | PROVIDERS: PCP Nurse Practitioner; Visit Provider Nurse Practitioner | DX: I10 Essential (primary) hypertension (principal); Z86.718 Personal history of other venous thrombosis and embolism; Z79.01 Long term (current) use of anticoagulants | CPT/HCPCS: 80053; 80061; 85610 ==

== ENCOUNTER → 2025-02-03 11:44 | Outpatient (BNVA) | payer MEDICARE, OTHER, SELFPAY | PROVIDERS: PCP Nurse Practitioner; Visit Provider Nurse Practitioner | DX: Z12.72 Encounter for screening for malignant neoplasm of vagina (principal); N39.0 Urinary tract infection, site not specified | CPT/HCPCS: 81000; 88175 ==

== ENCOUNTER → 2025-02-16 09:15 | Outpatient (BNVA) | payer MEDICARE, OTHER, SELFPAY | PROVIDERS: PCP Nurse Practitioner; Visit Provider Specialist | DX: G40.309 Generalized idiopathic epilepsy and epileptic syndromes, not intractable, without status epilepticus (principal); H81.10 Benign paroxysmal vertigo, unspecified ear; L71.9 Rosacea, unspecified | CPT/HCPCS: 99214 ==

== ENCOUNTER → 2025-02-23 09:03 | Outpatient (BNVA) | payer MEDICARE, OTHER, SELFPAY | PROVIDERS: PCP Nurse Practitioner; Visit Provider Nurse Practitioner Family | DX: L71.9 Rosacea, unspecified (principal); Z71.89 Other specified counseling | CPT/HCPCS: 99213 ==

== ENCOUNTER → 2025-03-11 10:08 | Outpatient (BNVA) | payer MEDICARE, OTHER, SELFPAY | PROVIDERS: PCP Nurse Practitioner; Visit Provider Internal Medicine Cardiovascular Disease | DX: I48.91 Unspecified atrial fibrillation (principal); Z79.01 Long term (current) use of anticoagulants; I10 Essential (primary) hypertension; E78.5 Hyperlipidemia, unspecified; Z86.718 Personal history of other venous thrombosis and embolism | CPT/HCPCS: 99214 ==

== ENCOUNTER 2025-03-17 16:12 | Outpatient (RCR) | payer MEDICARE, OTHER, SELFPAY | END 2025-03-29 08:46 | disposition home or self-care (01) | LOC: APT 16:12 | PROVIDERS: PCP Nurse Practitioner; Visit Provider Specialist | DX: H81.90 Unspecified disorder of vestibular function, unspecified ear (principal) | CPT/HCPCS: 97110; 97161 ==

== ENCOUNTER → 2025-03-23 10:51 | Outpatient (BNVA) | payer MEDICARE, OTHER, SELFPAY | PROVIDERS: PCP Nurse Practitioner; Visit Provider Podiatrist Foot & Ankle Surgery | DX: L84 Corns and callosities (principal); M21.611 Bunion of right foot; M20.41 Other hammer toe(s) (acquired), right foot | CPT/HCPCS: 99213 ==

== ENCOUNTER → 2025-03-29 11:12 | Outpatient (BNVA) | payer MEDICARE, OTHER, SELFPAY | PROVIDERS: PCP Nurse Practitioner; Visit Provider Nurse Practitioner | DX: Z79.01 Long term (current) use of anticoagulants (principal) | CPT/HCPCS: 85610 ==